=== PATIENT | female | born 1995 | race African-American/Black ===

== ENCOUNTER 2016-06-21 03:05 | Outpatient (CLI) | payer MEDICAID ==
[2016-06-21 03:44] LABS: APPEARANCE,URINE SLIGHTLY-CLOUDY; BILIRUBIN,URINE NEGATIVE (NEGATIVE); GLUCOSE, URINE NEGATIVE (NEGATIVE); KETONES,URINE NEGATIVE (NEGATIVE); LEUKOCYTE ESTERASE,URINE NEGATIVE (NEGATIVE); NITRITE,URINE NEGATIVE (NEGATIVE); PROTEIN,URINE NEGATIVE (NEGATIVE); URINE SPECIFIC GRAVITY 1.006; UROBILINOGEN,URINE NEGATIVE mg/dL (<2.0)
[2016-06-21 04:00] LABS: URINE BARBITURATES SCREEN NEGATIVE; URINE METHADONE SCREEN NEGATIVE; URINE OPIATES LOW NEGATIVE; URINE PHENCYCLIDINE SCREEN NEGATIVE
[2016-06-21 04:14] LABS: AMNISURE (ROM) NEGATIVE (NEGATIVE)
--- NOTE | 2016-06-21 04:44 | Non Stress Test Report ---
Non Stress Test Datetime Report Generated by CPN: 06/21/2016 04:43 DEMOGRAPHIC EGA NST: 40.3 INDICATION Indication for Study: Ordered by Provider; Other Indication for Study (NST) Other: LC URINE RESULTS Urine Protein, NST: Negative Urine Ketones - NST: Negative Urine Glucose - NST: Negative Urine Blood - NST: Negative MONITORING Monitor Explained: Monitor Explained; Test Explained; Patient Verbalized Understanding Time on Monitor: 06/21/2016 03:19 Time off Monitor: 06/21/2016 04:23 NST Duration: 64 NST INTERVENTIONS Physician Notified NST: Dr Neilsen BABY A Movement : Present Contraction Frequency : 3-15 FHR Baseline : 145 Accelerations : 15X15 Decelerations : None Variability : Moderate 6-25bpm NST Review: Meets Criteria for Reactive NST NST Review and Verified By : TRENT Min NST Results: Reactive NST REPORT Report Trigger: Send Report
[2016-06-21] MEDS ORDERED: RINGERS SOLUTION,LACTATED 1,000 ML IV PRN (12:24)
[2016-06-21] MEDS ORDERED: OXYTOCIN/NORMAL SALINE 1,000 ML IV PRN (12:24)
== END 2016-06-21 04:29 | disposition home or self-care (01) ==
LOC: LC 03:05
PROVIDERS: ATTEND Specialist
PROC: 4A1HXCZ Monitoring of Products of Conception, Cardiac Rate, External Approach (ICD-10-PCS; principal; 2016-06-21)
DX: O47.1 False labor at or after 37 completed weeks of gestation (principal); Z3A.40 40 weeks gestation of pregnancy
CPT/HCPCS: 59025; 84112; 81005; 80307; Q0114

== ENCOUNTER 2016-06-21 11:26 | Inpatient (IN) | payer MEDICAID ==
--- NOTE | 2016-06-21 12:00 | L&D Flow Sheet ---
LD Flowsheet Datetime Report Generated by CPN: 06/21/2016 12:00 Datetime: 06/21/2016 11:48 NBP Sys/[place]ugenia/Mean (mmHg): 120 (QS system process) : 62 (QS system process) : 84 (QS system process) Pulse: 111 (QS system process) LaborFlag: Antepartum (QS system process) Datetime: 06/21/2016 04:29 Teaching Comments: Term instructions given. Pt agrees to POC for d/c and IOL. Pt instructed to return to unit for strong/regular/painful ctx, suspected ROM, decreased movement, heavy vaginal bleeding. Pt denies questions at this time (Bina Grubbs RN) Additional Nursing Comments: Pt stable, ambulatory, discharged from unit (Bina Grubbs RN) Datetime: 06/21/2016 04:22 NBP Sys/[place]/Mean (mmHg): 93 (QS system process) : 55 (QS system process) : 68 (QS system process) Pulse: 96 (Annotations: HR palpated by RN ) (Bina Grubbs RN) Pulse: 114 (QS system process) Respirations: 15 (Bina Grubbs RN) Monitor Mode: External (Bina Grubbs RN) Frequency (min): 3-15 (Bina Grubbs RN) Quality: Mild (Bina Grubbs RN) Duration (sec): 60-70 (Bina Grubbs RN) Resting Tone (Palpate): Relaxed (Bina Grubbs RN) Monitor Mode: External US (Bina Grubbs RN) FHR Baseline Rate : 145 (Bina Grubbs RN) Variability: Moderate 6-25 bpm (Bina Grubbs RN) Accelerations: 15X15 (Bina Grubbs RN) Decelerations: None (Bina Grubbs RN) Patient Care Comments: monitors removed for d/c, pt wishes for IOL on monday 06/26 (Bina Grubbs RN) LaborFlag: Antepartum (QS system process) Datetime: 06/21/2016 04:15 Fern: Negative (Bina Grubbs RN) Communication: Provider Orders Received; Call/Page Placed to Provider; Report Given to @ Dr Hodge (Bina Grubbs RN) Communication Comments: Call placed to Dr Hodge, report re: pt presence, hx, NST, SVE and lab results. Orders to d/c pt to home, schedule postdates IOL if pt desires, will complete paperwork at pt follow up appt on saturday (Bina Grubbs RN) Datetime: 06/21/2016 04:00 Monitor Mode: External; Palpation (Bina Grubbs RN) Frequency (min): 3-6 (Bina Grubbs RN) Quality: Mild (Bina Grubbs RN) Duration (sec): 50-70 (Bina Grubbs RN) Resting Tone (Palpate): Relaxed (Bina Grubbs RN) Monitor Mode: External US (Bina Grubbs RN) FHR Baseline Rate : 145 (Bina Grubbs RN) Variability: Moderate 6-25 bpm (Bina Grubbs, RN) Accelerations: 15X15 (Bina Humera, RN) Decelerations: None (Bina Humera, RN) Datetime: 06/21/2016 03:43 I/O Interventions: Popsicle (Bina Humera, RN) Datetime: 06/21/2016 03:30 Frequency (min): q7 per pt (Bina Grubbs RN) Quality: Mild (Bina Grubbs RN) Pain Scale: 2 (Bina Grubbs RN) Pain Presence: Intermittent (Bina Grubbs RN) Pain Type: Contraction (Bina Grubbs RN) Pain Location: Abdomen; Back (Bina Grubbs RN) Pain Relief Measures: Comfort Measures (Bina Grubbs RN) Pain Coping: Talking Through Contractions (Bina Grubbs RN) Vaginal Bleeding: Scant (Annotations: blood tinge on amnisure, pt reports no bloody show ) (Bina Grubbs RN) Dilatation (cm): 1-2 cm (Bina Grubbs RN) Effacement: 60-70_ effaced (Bina Grubbs RN) Station: minus 2 (Bina Grubbs RN) Consistency: Soft (Bina Grubbs RN) Position: Anterior (Bina Grubbs RN) Total Melendez's Score: 8 (QS system process) : 5-8 = Small percentage of induction failure (QS system process) Level of Consciousness: Fully Conscious (Bina Grubbs RN) DTR's/Clonus: DTRs 2+; No Clonus (Bina Grubbs RN) Headache: Denies (Bina Grubbs RN) Breath Sounds, Left: Clear and Equal (Bina Grubbs RN) Breath Sounds, Right: Clear and Equal (Bina Grubbs RN) Nausea/Vomiting: Denies (Bina Grubbs RN) RUQ Epigastric Pain: Denies (Bina Grubbs RN) Patient Position/Activity: Right Tilt (Bina Grubbs RN) Comfort Measures: Family Support (Bina Grubbs RN) Instructional Method: Verbal; Patient Instructed; Family/Support Person Instructed; Verbalized Understanding (Bina Grubbs RN) Plan of Care: Plan of Care Discussed (Bina Grubbs RN) Unit Routine: [place] to Room; Call [place]ales; Bed; Unit Personnel (Bina Grubbs RN) LaborFlag: Antepartum (QS system process) Datetime: 06/21/2016 03:29 Membrane Comments: deepti collected and sent (Bina Grubbs RN) Datetime: 06/21/2016 03:24 Dilatation (cm): 1.5 (Bina Grubbs RN) Effacement (%): 60 (Bina Grubbs RN) Station: -2 (Bina Grubbs RN) Exam by: Clare Grubbs RN (Bina Grubbs RN) Vaginal Bleeding: Scant (Bina Grubbs RN) Cervix, Consistency: Soft (Bina Grubbs RN) Cervix, Position: Anterior (Bina Grubbs RN) Vaginal Exam Comments: Bag of water palpable (Bina Grubbs RN) Datetime: 06/21/2016 03:21 NBP Sys/[place]ugenia/Mean (mmHg): 107 (QS system process) : 66 (QS system process) : 81 (QS system process) Pulse: 109 (QS system process) Respirations: 15 (Bina Grubbs RN) Temperature (F): 98.2 (Bina Grubbs RN) Temperature (C): 36.8 (QS system process) Temperature Route: Oral (Bina Grubbs RN) LaborFlag: Antepartum (QS system process) Datetime: 06/21/2016 03:19 Stage of : Antepartum (Bina Grubbs RN)
[2016-06-21 12:16] LABS: AMNISURE (ROM) POSITIVE (NEGATIVE)
[2016-06-21 12:28] LABS: APPEARANCE,URINE SLIGHTLY-CLOUDY; BILIRUBIN,URINE NEGATIVE (NEGATIVE); GLUCOSE, URINE NEGATIVE (NEGATIVE); KETONES,URINE 20 mg/dL (NEGATIVE); LEUKOCYTE ESTERASE,URINE SMALL (NEGATIVE); NITRITE,URINE NEGATIVE (NEGATIVE); PROTEIN,URINE NEGATIVE (NEGATIVE); UROBILINOGEN,URINE NEGATIVE mg/dL (<2.0)
[2016-06-21] MEDS ORDERED: RINGERS SOLUTION,LACTATED 300 ML IV ONE (12:44)
[2016-06-21] MEDS ORDERED: RINGERS SOLUTION,LACTATED 1,000 ML IV PRN (12:44)
[2016-06-21 13:02] LABS: URINE BARBITURATES SCREEN NEGATIVE; URINE METHADONE SCREEN NEGATIVE; URINE OPIATES LOW NEGATIVE; URINE PHENCYCLIDINE SCREEN NEGATIVE
[2016-06-21] MEDS ORDERED: OXYTOCIN/NORMAL SALINE 20 UNIT/1,000 ML RTUINJ ONE (13:29)
[2016-06-21] MEDS: OXYTOCIN/NORMAL SALINE 1,000 ML IV PRN ×2 (13:35→22:49)
--- NOTE | 2016-06-21 14:00 | L&D Flow Sheet ---
LD Flowsheet Datetime Report Generated by CPN: 06/21/2016 14:00 Datetime: 06/21/2016 13:49 NBP Sys/[place]ugenia/Mean (mmHg): 116 (QS system process) : 68 (QS system process) : 84 (QS system process) Pulse: 111 (QS system process) LaborFlag: Antepartum (QS system process) Datetime: 06/21/2016 13:40 Pitocin (milliunit): Pitocin Started (milliunits) @ 2 (Cheri Antonio, RN) Datetime: 06/21/2016 13:19 NBP Sys/[place]/Mean (mmHg): 104 (QS system process) : 61 (QS system process) : 78 (QS system process) Pulse: 111 (QS system process) LaborFlag: Antepartum (QS system process) Datetime: 06/21/2016 13:00 Monitor Mode: External (Cheri Antonio, RN) Frequency (min): 5-6.5 (Cheri Antonio, RN) Quality: Mild/Moderate (Cheri Devriestt, RN) Duration (sec): 90-120 (Chrei Devriestt, RN) Resting Tone (Palpate): Relaxed (Cheri Antonio, RN) Monitor Mode: External US (Cheri Antonio, RN) FHR Baseline Rate : 140 (Cheri Devriestt, RN) Variability: Moderate 6-25 bpm (Cheri Jenellelatt, RN) Accelerations: 15X15 (Cheri Devriestt, RN) Decelerations: None (Cheri Marlatt, RN) Datetime: 06/21/2016 12:49 NBP Sys/[place]/Mean (mmHg): 110 (QS system process) : 59 (QS system process) : 77 (QS system process) Pulse: 103 (QS system process) LaborFlag: Antepartum (QS system process) Datetime: 06/21/2016 12:40 Monitor Interventions for FHR: Ultrasound Adjusted (Cheri Marlatt, RN) Datetime: 06/21/2016 12:38 IV/Blood Work: IV Started; IV Bolus Started (Cheri Antonio RN) Patient Care Comments: 18G left wrist (Cheri Antonio RN) Datetime: 06/21/2016 12:30 Frequency (min): 5-6 (Cheri Antonio, RN) Duration (sec): 80-90 (Cheri Antonio RN) Resting Tone (Palpate): Relaxed (Cheri Antonio RN) Monitor Mode: External US (Cheri Antonio RN) FHR Baseline Rate : 135 (Cheri Antonio RN) Variability: Moderate 6-25 bpm (Cheri Antonio, RN) Accelerations: 15X15 (Cheri Antonio, RN) Decelerations: Early (Cheri Antonio, RN) Datetime: 06/21/2016 12:20 Membrane Status: Ruptured (Cheri Antonio RN) Membranes Ruptured Date/Time: 06/21/2016 10:30 (Cheri Antonio RN) Membranes Rupture Method: Spontaneous (Cheri Antonio RN) Amniotic Fluid Color: Light Meconium (Cheri Antonio RN) Amniotic Fluid Amount: Scant (Cheri Antonio RN) Amniotic Fluid Odor: Normal (Cheri Antonio RN) Vaginal Bleeding: None (Cheri Antonio RN) Provider Reviewed Strip: Yes (Cheri Antonio RN) Communication: Provider Orders Received; Call/Page Placed to Provider (Cheri Antonio RN) Provider Notified (Name): Kaley James CNM (Cheri Antonio RN) Notification Reason: Status Update; Status; Labor Status; Membrane Status; Uterine Activity; Pain; Lab/Diagnostic Study (Cheri Antonio RN) Communication Comments: Notified provider of FHTs, CTXs, SVE, and positive amnisure. Received order to admit patient and once admitted begin Pitocin 20units/1000ml NS at 2milliunits/min and increase by 2 milliunits/min every 30 minutes until adequate labor pattern is acheived. Patient may have epidural when ready. (Cheri Antonio RN) Datetime: 06/21/2016 12:19 NBP Sys/[place]/Mean (mmHg): 114 (QS system process) : 70 (QS system process) : 86 (QS system process) Pulse: 118 (QS system process) LaborFlag: Antepartum (QS system process) Datetime: 06/21/2016 12:17 ROM Test Kit: Positive (Cheri Antonio, RN) Datetime: 06/21/2016 12:00 Monitor Mode: External (Cheri Antonio RN) Frequency (min): 5.5 (Cheri Antonio RN) Quality: Mild/Moderate (Cheri Antonio RN) Duration (sec): 90-100 (Cheri Antonio RN) Resting Tone (Palpate): Relaxed (Cheri Antonio RN) Monitor Mode: External US (Cheri Antonio RN) FHR Baseline Rate : 140 (Cheri Antonio RN) Variability: Moderate 6-25 bpm (Cheri Antonio RN) Decelerations: Early (Cheri Antonio RN)
[2016-06-21 14:35] LABS: ABSOLUTE LYMPHOCYTES (AUTO) 1.5 10^3/uL (0.5-4.7); ABSOLUTE MONOCYTES (AUTO) 0.8 10^3/uL (0.1-1.4); ABSOLUTE NEUT (AUTO) 14.6 10^3/uL (1.7-8.2); BASOPHILS % (AUTO) 0.1 % (0-2); HEMATOCRIT 31.6 % (36.0-47.0); HEMOGLOBIN 10.3 g/dL (12.0-15.5); HGB HCT DIFFERENCE -0.7; LYMPHOCYTES % (AUTO) 8.7 % (13-45); MEAN CORPUSCULAR HEMOGLOBIN 27.9 pg (27.0-33.4); MEAN CORPUSCULAR HGB CONC 32.6 g/dL (32.0-36.0); MEAN CORPUSCULAR VOLUME 85 fl (80-97); RED CELL DISTRIBUTION WIDTH 15.1 % (11.5-14.0); SEGMENTED NEUTROPHILS % (AUTO) 86.2 % (42-78); WHITE BLOOD COUNT 16.9 10^3/uL (4.0-10.5)
[2016-06-21] MEDS ORDERED: EPHEDRINE SULFATE INJ 50 MG/1 ML AMPULE ONE (14:58)
[2016-06-21] MEDS ORDERED: BUPIVACAINE HCL 0.25 % INJ/PF (2.5 MG/1 ML) 30 ML VIAL ONE (14:58)
[2016-06-21] MEDS ORDERED: FENTANYL/BUPIVACAINE/NS/PF 200 MCG/100 ML RTUINJ EPI ONE (14:58)
--- NOTE | 2016-06-21 16:00 | L&D Flow Sheet ---
LD Flowsheet Datetime Report Generated by CPN: 06/21/2016 16:00 Datetime: 06/21/2016 15:55 NBP Sys/[place]ugenia/Mean (mmHg): 103 (QS system process) : 55 (QS system process) : 72 (QS system process) Pulse: 115 (QS system process) LaborFlag: Antepartum (QS system process) Datetime: 06/21/2016 15:44 NBP Sys/[place]/Mean (mmHg): 101 (QS system process) : 56 (QS system process) : 73 (QS system process) Pulse: 123 (QS system process) LaborFlag: Antepartum (QS system process) Datetime: 06/21/2016 15:42 NBP Sys/[place]/Mean (mmHg): 90 (QS system process) : 53 (QS system process) : 64 (QS system process) Pulse: 113 (QS system process) Monitor Interventions for UA: [place] Adjusted (Cheri Antonio RN) LaborFlag: Antepartum (QS system process) Datetime: 06/21/2016 15:40 NBP Sys/[place]/Mean (mmHg): 94 (QS system process) : 56 (QS system process) : 68 (QS system process) Pulse: 109 (QS system process) Monitor Interventions for UA: [place] Adjusted (Cheri Antonio RN) Monitor Interventions for FHR: Ultrasound Adjusted (Cheri Antonio RN) LaborFlag: Antepartum (QS system process) Datetime: 06/21/2016 15:38 NBP Sys/[place]/Mean (mmHg): 102 (QS system process) : 59 (QS system process) : 72 (QS system process) Pulse: 116 (QS system process) Anesthesia Comments: 5mg Ephedrine given IV (Cheri Antonio RN) LaborFlag: Antepartum (QS system process) Datetime: 06/21/2016 15:36 NBP Sys/[place]/Mean (mmHg): 99 (QS system process) : 55 (QS system process) : 70 (QS system process) Pulse: 105 (QS system process) LaborFlag: Antepartum (QS system process) Datetime: 06/21/2016 15:34 NBP Sys/[place]/Mean (mmHg): 97 (QS system process) : 58 (QS system process) : 71 (QS system process) Pulse: 107 (QS system process) LaborFlag: Antepartum (QS system process) Datetime: 06/21/2016 15:33 Pitocin (milliunit): Pitocin Increased to (milliunits) @ 4 (Cheri Jenellesusana, ) Datetime: 06/21/2016 15:32 NBP Sys/[place]/Mean (mmHg): 102 (QS system process) : 63 (QS system process) : 78 (QS system process) Pulse: 113 (QS system process) LaborFlag: Antepartum (QS system process) Datetime: 06/21/2016 15:30 NBP Sys/[place]/Mean (mmHg): 106 (QS system process) : 77 (QS system process) : 87 (QS system process) Pulse: 120 (QS system process) Patient Position/Activity: Right Lateral; Low Fowlers (Cheri Antonio, RN) LaborFlag: Antepartum (QS system process) Datetime: 06/21/2016 15:29 I/O Interventions: Valenzuela Cath Inserted (Cheri Antonio, RN) Datetime: 06/21/2016 15:28 NBP Sys/[place]/Mean (mmHg): 110 (QS system process) : 74 (QS system process) : 87 (QS system process) Pulse: 104 (QS system process) LaborFlag: Antepartum (QS system process) Datetime: 06/21/2016 15:26 NBP Sys/[place]/Mean (mmHg): 110 (QS system process) : 73 (QS system process) : 87 (QS system process) Pulse: 115 (QS system process) Patient Position/Activity: Supine (Cheri Antonio RN) Epidural Procedure Other: Pump Started (Cheri Antonio RN) LaborFlag: Antepartum (QS system process) Datetime: 06/21/2016 15:24 NBP Sys/Eug[place]/Mean (mmHg): 118 (QS system process) : 85 (QS system process) : 96 (QS system process) Pulse: 112 (QS system process) LaborFlag: Antepartum (QS system process) Datetime: 06/21/2016 15:22 NBP Sys/[place]/Mean (mmHg): 119 (QS system process) : 81 (QS system process) : 96 (QS system process) Pulse: 113 (QS system process) Epidural Procedure: Cath Placed (Cheri Antonio RN) LaborFlag: Antepartum (QS system process) Datetime: 06/21/2016 15:20 NBP Sys/Eugenia/Mean (mmHg): 131 (QS system process) : 85 (QS system process) : 103 (QS system process) Pulse: 108 (QS system process) Epidural Procedure: Test Dose (Cheri Antonio RN) LaborFlag: Antepartum (QS system process) Datetime: 06/21/2016 15:19 Pulse: 108 (QS system process) SpO2 (%): 100 (QS system process) LaborFlag: Antepartum (QS system process) Datetime: 06/21/2016 15:14 Pulse: 113 (QS system process) SpO2 (%): 100 (QS system process) LaborFlag: Antepartum (QS system process) Datetime: 06/21/2016 15:10 Procedure Verify: Correct Patient Identity; Accurate Procedure Consent Form; Agreement on Procedure to be Done (Cheri Antonio RN) Anesthesia Plans: Epidural (Cheri Antonio RN) Epidural Positioning: Sitting (Cheri Antonio RN) Anesthesia Comments: Dr. Judd at bedside (Cheri Antonio RN) Datetime: 06/21/2016 15:09 Pulse: 117 (QS system process) SpO2 (%): 100 (QS system process) LaborFlag: Antepartum (QS system process) Datetime: 06/21/2016 15:04 Pulse: 116 (QS system process) SpO2 (%): 100 (QS system process) LaborFlag: Antepartum (QS system process) Datetime: 06/21/2016 15:03 Epidural Positioning: Sitting (Cheri Marlatt, RN) Datetime: 06/21/2016 15:01 Patient Care Comments: getting patient in position for epidural (Cheri Antonio, MARLENE) Datetime: 06/21/2016 14:58 Pain Assessment Comments: Dr. Judd notified of patient's request for epidural. Received order to sit patient up for epidrual placement and he would be there in 10 minutes (Cheri Antonio RN) Comfort Measures: Anesthesia Notified (Cheri Antonio RN) LaborFlag: Antepartum (QS system process) Datetime: 06/21/2016 14:49 NBP Sys/Eugenia/Mean (mmHg): 115 (QS system process) : 65 (QS system process) : 82 (QS system process) Pulse: 111 (QS system process) LaborFlag: Antepartum (QS system process) Datetime: 06/21/2016 14:20 Dilatation (cm): 4.0 (Cheri Antonio RN) Effacement (%): 80 (Cheri Antonio RN) Station: -1 (Cheri Antonio RN) Exam by: Vincent Martin (Cheri Antonio RN) Cervix, Position: Anterior (Cheri Antonio RN) Datetime: 06/21/2016 14:19 NBP Sys/[place]ugenia/Mean (mmHg): 109 (QS system process) : 75 (QS system process) : 88 (QS system process) Pulse: 127 (QS system process) Pain Presence: Intermittent (Cheri Antonio RN) Pain Type: Cramping; Contraction; Pressure (Cheri Antonio RN) Pain Location: Abdomen (Cheri Antonio RN) Pain Coping: Requesting Pain Medication or Epidural; Crying (Cheri Antonio RN) Pain Assessment Comments: patient states shes feeling pressure (Cheri Antonio RN) LaborFlag: Antepartum (QS system process)
--- NOTE | 2016-06-21 18:00 | L&D Flow Sheet ---
LD Flowsheet Datetime Report Generated by CPN: 06/21/2016 18:00 Datetime: 06/21/2016 17:56 NBP Sys/Eugenia/Mean (mmHg): 99 (QS system process) : 54 (QS system process) : 70 (QS system process) Pulse: 113 (QS system process) LaborFlag: Antepartum (QS system process) Datetime: 06/21/2016 17:55 Monitor Interventions for UA: [place] Adjusted (Cheri Marlatt, RN) Datetime: 06/21/2016 17:51 Monitor Interventions for UA: [place] Adjusted (Cheri Marlatt, RN) Datetime: 06/21/2016 17:42 Temperature (F): 98.2 (Cheri Antonio, RN) Temperature (C): 36.8 (QS system process) LaborFlag: Antepartum (QS system process) Datetime: 06/21/2016 17:36 NBP Sys/Eugenia/Mean (mmHg): 105 (QS system process) : 57 (QS system process) : 75 (QS system process) Pulse: 120 (QS system process) LaborFlag: Antepartum (QS system process) Datetime: 06/21/2016 17:30 Monitor Mode: External (Cheri Antonio RN) Frequency (min): 2.5-3.5 (Cheri Antonio RN) Quality: Moderate (Cheri Antonio RN) Duration (sec): 50-90 (Cheri Antonio RN) Resting Tone (Palpate): Relaxed (Cheri Antonio RN) Monitor Mode: External US (Cheri Antonio RN) FHR Baseline Rate : 145 (Cheri Antonio RN) Variability: Moderate 6-25 bpm (Cheri Antonio RN) Decelerations: None (Cheri Antonio, RN) Pitocin (milliunit): Pitocin Remains (milliunits) @ 8 (Cheri Antonio RN) Datetime: 06/21/2016 17:25 NBP Sys/[place]ugenia/Mean (mmHg): 101 (QS system process) : 55 (QS system process) : 67 (QS system process) Pulse: 120 (QS system process) LaborFlag: Antepartum (QS system process) Datetime: 06/21/2016 17:19 IV/Blood Work: IV Bolus Started (Cheri Antonio RN) Datetime: 06/21/2016 17:15 NBP Sys/[place]enia/Mean (mmHg): 93 (QS system process) : 55 (QS system process) : 68 (QS system process) Pulse: 108 (QS system process) Monitor Mode: External (Cheri Antonio RN) Frequency (min): 2-3 (Cheri Antonio RN) Quality: Moderate (Cheri Antonio RN) Duration (sec): 60-70 (Cheri Antonio RN) Resting Tone (Palpate): Relaxed (Cheri Antonio RN) Monitor Mode: External US (Cheri Antonio RN) FHR Baseline Rate : 145 (Cheri Antonio RN) Variability: Moderate 6-25 bpm (Cheri Antonio RN) Decelerations: Early (Cheri Antonio RN) Pitocin (milliunit): Pitocin Remains (milliunits) @ 8 (Cheri Antonio RN) LaborFlag: Antepartum (QS system process) Datetime: 06/21/2016 17:05 NBP Sys/[place]/Mean (mmHg): 94 (QS system process) : 53 (QS system process) : 69 (QS system process) Pulse: 108 (QS system process) LaborFlag: Antepartum (QS system process) Datetime: 06/21/2016 17:00 Monitor Mode: External; Palpation (Cheri Antonio RN) Frequency (min): 3-4 (Cheri Antonio RN) Quality: Moderate (Cheri Antonio RN) Duration (sec): 60-100 (Cheri Antonio RN) Resting Tone (Palpate): Relaxed (Cheri Antonio RN) Monitor Mode: External US (Cheri Antonio RN) FHR Baseline Rate : 140 (Cheri Antonio RN) Variability: Moderate 6-25 bpm (Cheri Antonio RN) Accelerations: 15X15 (Cheri Antonio RN) Pitocin (milliunit): Pitocin Increased to (milliunits) @ 8 (Cheri Antonio RN) Datetime: 06/21/2016 16:59 Dilatation (cm): 6.0 (Cheri Antonio RN) Effacement (%): 80 (Cheri Antonio RN) Station: -1 (Cheri Antonio RN) Exam by: Vincent Antonio RN (Cheri Antonio, MARLENE) Datetime: 06/21/2016 16:55 NBP Sys/[place]/Mean (mmHg): 99 (QS system process) : 56 (QS system process) : 72 (QS system process) Pulse: 116 (QS system process) LaborFlag: Antepartum (QS system process) Datetime: 06/21/2016 16:46 NBP Sys/[place]/Mean (mmHg): 100 (QS system process) : 57 (QS system process) : 73 (QS system process) Pulse: 114 (QS system process) LaborFlag: Antepartum (QS system process) Datetime: 06/21/2016 16:45 Monitor Mode: External (Cheri Antonio RN) Frequency (min): 2-5 (Cheri Antonio RN) Quality: Moderate (Cheri Antonio RN) Duration (sec): 70-80 (Cheri Antonio RN) Resting Tone (Palpate): Relaxed (Cheri Atnonio, MARLENE) Monitor Mode: External US (Cheri Antonio, MARLENE) FHR Baseline Rate : 140 (Cheri Antonio RN) Variability: Moderate 6-25 bpm (Cheri Antonio RN) Accelerations: 15X15 (Cheri Antonio, RN) Decelerations: Early (Cheri Antonio RN) Pitocin (milliunit): Pitocin Remains (milliunits) @ 6 (Cheri Antonio RN) Datetime: 06/21/2016 16:35 NBP Sys/[place]/Mean (mmHg): 98 (QS system process) : 56 (QS system process) : 71 (QS system process) Pulse: 110 (QS system process) LaborFlag: Antepartum (QS system process) Datetime: 06/21/2016 16:30 Monitor Mode: External (Cheri Antonio RN) Frequency (min): 4.5 (Cheri Antonio RN) Quality: Moderate (Cheri Antonio RN) Duration (sec): 70-80 (Cheri Antonio RN) Resting Tone (Palpate): Relaxed (Cheri Antonio RN) Monitor Mode: External US (Cheri Antonio RN) FHR Baseline Rate : 140 (Cheri Antonio RN) Variability: Moderate 6-25 bpm (Cheri Antonio RN) Accelerations: 15X15 (Cheri Antonio RN) Decelerations: Early (Cheri Antonio RN) Pitocin (milliunit): Pitocin Remains (milliunits) @ 6 (Cheri Antonio, RN) Datetime: 06/21/2016 16:25 NBP Sys/[place]/Mean (mmHg): 108 (QS system process) : 55 (QS system process) : 74 (QS system process) Pulse: 112 (QS system process) LaborFlag: Antepartum (QS system process) Datetime: 06/21/2016 16:15 Monitor Mode: External; Palpation (Cheri Antonio RN) Frequency (min): 3.5-4.5 (Cheri Antonio RN) Quality: Mild/Moderate (Cheri Antonio RN) Duration (sec): 70-100 (Cehri Antonio RN) Resting Tone (Palpate): Relaxed (Cheri Antonio RN) Monitor Mode: External US (Cheri Antonio RN) FHR Baseline Rate : 135 (Cheri Antonio RN) Variability: Moderate 6-25 bpm (Cheri Antonio RN) Accelerations: 15X15 (Cheri Antonio RN) Decelerations: Early (Cheri Antonio RN) Pitocin (milliunit): Pitocin Increased to (milliunits) @ 6 (Cheri Antonio RN) Patient Position/Activity: Left Lateral; Low Fowlers (Cheri Antonio RN) Datetime: 06/21/2016 16:05 NBP Sys/[place]/Mean (mmHg): 99 (QS system process) : 57 (QS system process) : 73 (QS system process) Pulse: 117 (QS system process) LaborFlag: Antepartum (QS system process) Datetime: 06/21/2016 16:00 Monitor Mode: External (Koffi Reed RN) Frequency (min): 2.5-3 (Koffi Reed RN) Quality: Mild/Moderate (Koffi Reed RN) Duration (sec): 60-90 (Koffi Reed RN) Resting Tone (Palpate): Relaxed (Koffi Reed RN) Monitor Mode: External US (Koffi Reed RN) FHR Baseline Rate : 135 (Koffi Reed RN) Variability: Moderate 6-25 bpm (Koffi Reed RN) Accelerations: 10X10 (Koffi Reed RN) Decelerations: Early (Koffi Reed RN) Pitocin (milliunit): Pitocin Remains (milliunits) @ 4 (Cheri Antonio RN)
--- NOTE | 2016-06-21 18:41 | L&D Progress Notes ---
PROGRESS NOTES Datetime Report Generated by CPN: 06/21/2016 18:41 PROGRESS NOTE Impression: Normal Progression of Labor Procedures: Intrauterine Pressure Catheter; Scalp Electrode; Sterile Vag Exam Plan: Continue Present Management Informed Consent Obtained: Vaginal Delivery Vital Signs : Reviewed Comment: SVE as above FSE, IUPC placed without difficulty Will cotninue to monitor VAGINAL EXAM Dilatation: 7 Dilatation: 3 Effacement: 90 Effacement: 80 Station: 0 Station: -1 Contractions: 2-4 Contractions: irregular MEMBRANES Membranes: Ruptured Membranes: Ruptured Amniotic Fluid Color: Meconium, Light Amniotic Fluid Color: Meconium, Light FETUS A FHR - Baseline: 140 Monitoring: Internal Scalp Electrode Variability: Moderate 6-25bpm Decelerations: Early; Variable FHR Category: Category II Estimated Weight (gm): 3400 Presentation: Vertex SIGNATURE SIGNATURE: [id number] SIGNATURE: [id number] SIGNATURE: [id number] Assignment: Gabriela Bryan MD Signature: with User ID: [email or web address] : with User ID: [email or web address]
[2016-06-21] MEDS ORDERED: LIDOCAINE 1% INJ-PF (10 MG/ML) 30 ML SDV ONE (19:30)
[2016-06-21] MEDS ORDERED: MISOPROSTOL 0.2 MG TABLET ONE (19:30)
--- NOTE | 2016-06-21 20:00 | L&D Flow Sheet ---
LD Flowsheet Datetime Report Generated by CPN: 06/21/2016 20:00 Datetime: 06/21/2016 19:56 NBP Sys/Eugenia/Mean (mmHg): 116 (QS system process) : 67 (QS system process) : 86 (QS system process) Pulse: 133 (QS system process) LaborFlag: Antepartum (QS system process) Datetime: 06/21/2016 19:45 Monitor Mode: Internal (Cheri Antonio, RN) Frequency (min): 1.5-3 (Cheri Marlatt, RN) Quality: Moderate to Strong (Cheri Marlatt, RN) Duration (sec): 70-80 (Cheri Marlatt, RN) Resting Tone (Palpate): Relaxed (Cheri Marlatt, RN) Monitor Mode: Internal Scalp Electrode (Cheri Marlatt, RN) FHR Baseline Rate : 140 (Chrei Marlatt, RN) Variability: Moderate 6-25 bpm (Cheri Marlatt, RN) Decelerations: Early (Cheri Marlatt, RN) Pitocin (milliunit): Pitocin Remains (milliunits) @ 12 (Cheri Marlatt, RN) Datetime: 06/21/2016 19:41 NBP Sys/Eugenia/Mean (mmHg): 109 (QS system process) : 57 (QS system process) : 77 (QS system process) Pulse: 136 (QS system process) LaborFlag: Antepartum (QS system process) Datetime: 06/21/2016 19:30 Monitor Mode: Internal (Cheri Almanzarlatt, RN) Frequency (min): 2.5 (Cheri Jenellelatt, RN) Quality: Moderate to Strong (Cheri Jenellelatt, RN) Duration (sec): 60-80 (Cheri Jenellelatt, RN) Resting Tone (Palpate): Relaxed (Cheri Jenellelatt, RN) Monitor Mode: Internal Scalp Electrode (Cheri Devriestt, RN) FHR Baseline Rate : 130 (Cheri Jenellelatt, RN) Variability: Moderate 6-25 bpm (Cheri Marlatt, RN) Accelerations: 15X15 (Cheri Marlatt, RN) Decelerations: Early (Cheri Jenellelatt, RN) Datetime: 06/21/2016 19:28 Patient Position/Activity: Right Lateral; Peanut Ball (Cheri Antonio, RN) Datetime: 06/21/2016 19:27 Dilatation (cm): 9.5 (Cheri Jenellelatt, RN) Effacement (%): 100 (Cheri Antonio, RN) Station: 1 (Cheri Antonio RN) Exam by: Vincent Antonio RN (Cheriomer Antonio, RN) Datetime: 06/21/2016 19:26 NBP Sys/Eugenia/Mean (mmHg): 111 (QS system process) : 65 (QS system process) : 80 (QS system process) Pulse: 126 (QS system process) LaborFlag: Antepartum (QS system process) Datetime: 06/21/2016 19:19 IV/Blood Work: IV Infusing per Order (Cheri Antonio, RN) Patient Care Comments: LR at 125ml/hr (Cheri Antonio, RN) Datetime: 06/21/2016 19:15 Monitor Mode: Internal (Cheri Marlatt, RN) Frequency (min): 2-2.5 (Cheri Marlatt, RN) Quality: Moderate to Strong (Cheri Marlatt, RN) Duration (sec): 60-70 (Cheri Marlatt, RN) Resting Tone (Palpate): Relaxed (Cheri Marlatt, RN) Monitor Mode: Internal Scalp Electrode (Cheri Marlatt, RN) FHR Baseline Rate : 125 (Cheri Marlatt, RN) Variability: Moderate 6-25 bpm (Cheri Marlatt, RN) Accelerations: 15X15 (Cheri Marlatt, RN) Decelerations: Early (Cheri Marlatt, RN) Pitocin (milliunit): Pitocin Remains (milliunits) @ 12 (Cheri Marlatt, RN) Datetime: 06/21/2016 19:12 NBP Sys/Eugenia/Mean (mmHg): 113 (QS system process) : 67 (QS system process) : 82 (QS system process) Pulse: 121 (QS system process) LaborFlag: Antepartum (QS system process) Datetime: 06/21/2016 19:00 Monitor Mode: Internal (Cheri Marlatt, RN) Frequency (min): 1.5-3 (Cheri Marlatt, RN) Quality: Moderate (Cheri Marlatt, RN) Duration (sec): 60-80 (Cheri Marlatt, RN) Resting Tone (Palpate): Relaxed (Cheri Marlatt, RN) Resting Tone IUP (mmHg): 0 (Cheri Marlatt, RN) Intensity IUP (mmHg): 66 (Cheri Marlatt, RN) Contraction Comments: MVU 330 (Cheri Marlatt, RN) Monitor Mode: Internal Scalp Electrode (Cheri Jenellelatt, RN) FHR Baseline Rate : 135 (Cheri Marlatt, RN) Variability: Moderate 6-25 bpm (Cheri Marlatt, RN) Decelerations: Early (Cheri Marlatt, RN) Pitocin (milliunit): Pitocin Remains (milliunits) @ 12 (Cheri Jenellelatt, RN) Datetime: 06/21/2016 18:56 NBP Sys/[place]ugenia/Mean (mmHg): 113 (QS system process) : 65 (QS system process) : 82 (QS system process) Pulse: 123 (QS system process) LaborFlag: Antepartum (QS system process) Datetime: 06/21/2016 18:54 IV/Blood Work: New IV Bag Hung (Cheri Marlatt, RN) Datetime: 06/21/2016 18:52 Patient Position/Activity: Right Lateral; Peanut Ball; Low Fowlers (Cheri Marlatt, RN) Datetime: 06/21/2016 18:45 Monitor Mode: Internal (Cheri Marlatt, RN) Frequency (min): 1.5-5 (Cheri Marlatt, RN) Quality: Moderate (Cheri Marlatt, RN) Duration (sec): 60-90 (Cheri Marlatt, RN) Resting Tone (Palpate): Relaxed (Cheri Marlatt, RN) Resting Tone IUP (mmHg): 0 (Cheri Marlatt, RN) Monitor Mode: Internal Scalp Electrode (Cheri Marlatt, RN) FHR Baseline Rate : 140 (Cheri Marlatt, RN) Variability: Moderate 6-25 bpm (Cheri Marlatt, RN) Decelerations: Early (Cheri Marlatt, RN) Pitocin (milliunit): Pitocin Remains (milliunits) @ 12 (Cheri Marlatt, RN) Datetime: 06/21/2016 18:42 NBP Sys/Eugenia/Mean (mmHg): 105 (QS system process) : 57 (QS system process) : 74 (QS system process) Pulse: 118 (QS system process) LaborFlag: Antepartum (QS system process) Datetime: 06/21/2016 18:40 IV/Blood Work: IV Bolus Started (Cheri Antonio, RN) Datetime: 06/21/2016 18:30 Pitocin (milliunit): Pitocin Increased to (milliunits) @ 12 (Cheri Marlatt, RN) Datetime: 06/21/2016 18:27 Dilatation (cm): 6.5 (Cheri Marlatt, RN) Effacement (%): 90 (Cheri Marlatt, RN) Station: 0 (Cheri Marlatt, RN) Exam by: H. Jacob CNM (Cheri Marlatt, RN) Datetime: 06/21/2016 18:26 Monitor Interventions for UA: IUPC Inserted (Cheri Antonio RN) Monitor Mode: Internal Scalp Electrode (Cheri Antonio RN) Comments: FSE inserted by Kaley James CNM (Cheri Antonio RN) Datetime: 06/21/2016 18:20 Provider Reviewed Strip: Yes (Cheri Antonio RN) Communication: Call/Page Placed to Provider (Cheri Antonio RN) Provider Notified (Name): Kaley James TAYLOR (Cheri Antonio RN) Notification Reason: Status Update; Status; Uterine Activity (Cheri Antonio RN) Communication Comments: Provider reviewed strip, decision made to place internal monitors to trace FHTs and CTXs (Cheri Antonio RN) Datetime: 06/21/2016 18:15 Monitor Mode: External (Cheri Antonio RN) Frequency (min): 4-4.5 (Cheri Antonio RN) Quality: Moderate (Cheri Antonio RN) Duration (sec): 60-70 (Cheri Antonio RN) Resting Tone (Palpate): Relaxed (Cheri Antonio RN) Monitor Mode: External US (Cheri Antonio RN) FHR Baseline Rate : 140 (Cheri Antonio RN) Variability: Moderate 6-25 bpm (Cheri Antonio RN) Decelerations: Early (Cheri Antonio RN) Pitocin (milliunit): Pitocin Remains (milliunits) @ 10 (Cheri Antonio RN) Datetime: 06/21/2016 18:13 Monitor Interventions for UA: [place] Adjusted (Cheri Antonio RN) Datetime: 06/21/2016 18:12 NBP Sys/Eugenia/Mean (mmHg): 109 (QS system process) : 64 (QS system process) : 77 (QS system process) Pulse: 116 (QS system process) LaborFlag: Antepartum (QS system process) Datetime: 06/21/2016 18:10 Patient Position/Activity: Left Lateral; Peanut Ball; Low Fowlers (Cheri Antonio RN) Datetime: 06/21/2016 18:00 Monitor Mode: External (Cheri Antonio RN) Resting Tone (Palpate): Relaxed (Cheri Antonio RN) Contraction Comments: UTD frequency and duration, TOCO adjusted (Cheri Antonio RN) Monitor Mode: External US (Cheri Antonio RN) FHR Baseline Rate : 135 (Cheri Antonio RN) Variability: Moderate 6-25 bpm (Cheri Antonio RN) Comments: unable to determine type of decelerations due to being unable to determine ctx pattern (Cheri Antonio RN) Pitocin (milliunit): Pitocin Remains (milliunits) @ 10 (Cheri Antonio RN)
--- NOTE | 2016-06-21 22:00 | L&D Flow Sheet ---
LD Flowsheet Datetime Report Generated by CPN: 06/21/2016 22:00 Datetime: 06/21/2016 21:54 NBP Sys/Eugenia/Mean (mmHg): 120 (QS system process) : 61 (QS system process) : 85 (QS system process) Pulse: 137 (QS system process) Datetime: 06/21/2016 21:45 Stage of : Recovery (Cheri Antonio, RN) Pain Scale: 0 (Cheri Antonio, RN) Pain Presence: None/Denies (Cheri Marlatt, RN) Pain Type: N/A (Cheri Marlatt, RN) Datetime: 06/21/2016 21:35 Stage of : Recovery (Cheri Marlatt, RN) Pain Scale: 0 (Cheri Marlatt, RN) Pain Presence: None/Denies (Cheri Marlatt, RN) Pain Type: N/A (Cheri Marlatt, RN) Datetime: 06/21/2016 21:18 Actions for Decelerations: IV Bolus (Cheri Marlatt, RN) Datetime: 06/21/2016 20:58 Pitocin (milliunit): Pitocin Increased to (milliunits) @ 14 (Cheri Devriestt, RN) Datetime: 06/21/2016 20:56 NBP Sys/Eugenia/Mean (mmHg): 118 (QS system process) : 63 (QS system process) : 84 (QS system process) Pulse: 139 (QS system process) LaborFlag: Antepartum (QS system process) Datetime: 06/21/2016 20:43 Stage 2 Comments: tug of war (Cheri Marlatt, RN) Datetime: 06/21/2016 20:41 NBP Sys/Eugenia/Mean (mmHg): 108 (QS system process) : 60 (QS system process) : 80 (QS system process) Pulse: 146 (QS system process) LaborFlag: Antepartum (QS system process) Datetime: 06/21/2016 20:27 Comments: RN at bedside continuously monitoring FHTs while patient pushing with contractions (Cheri Antonio RN) Pushing: Coached on Pushing (Cheri Antonio RN) Pushing Position: Pushing Lithotomy (Cheri Antonio RN) Datetime: 06/21/2016 20:26 NBP Sys/Eugenia/Mean (mmHg): 127 (QS system process) : 75 (QS system process) : 94 (QS system process) Pulse: 133 (QS system process) LaborFlag: Antepartum (QS system process) Datetime: 06/21/2016 20:22 Dilatation (cm): 10.0 (Cheri Antonio RN) Effacement (%): 100 (Cheri Antonio RN) Station: 1 (Cheri Antonio RN) Exam by: Vincent Antonio RN (Cheri Antonio RN) I/O Interventions: Valenzuela Discontinued (Cheri Antonio RN) Datetime: 06/21/2016 20:12 NBP Sys/Eugenia/Mean (mmHg): 136 (QS system process) : 89 (QS system process) : 104 (QS system process) Pulse: 131 (QS system process) LaborFlag: Antepartum (QS system process) Datetime: 06/21/2016 20:00 Monitor Mode: Internal (Cheri Antonio RN) Frequency (min): 2-3.5 (Cheri Antonio RN) Quality: Moderate to Strong (Cheri Antonio RN) Duration (sec): 70-80 (Cheri Antonio RN) Resting Tone (Palpate): Relaxed (Cheri Antonio RN) Resting Tone IUP (mmHg): 0 (Cheri Antonio RN) Intensity IUP (mmHg): 61 (Cheri Antonio RN) Contraction Comments: MVU 305 (Cheri Antonio RN) Monitor Mode: Internal Scalp Electrode (Cheri Antonio RN) FHR Baseline Rate : 125 (Cheri Antonio RN) Variability: Moderate 6-25 bpm (Cheri Antonio RN) Accelerations: 15X15 (Cheri Antonio RN) Decelerations: Early (Cheri Antonio RN) Pitocin (milliunit): Pitocin Remains (milliunits) @ 12 (Cheri Antonio RN) Patient Position/Activity: Left Lateral; Low Fowlers (Cheri Antonio RN)
[2016-06-21] MEDS ORDERED: ZOLPIDEM TARTRATE 5 MG TABLET PO PRN (22:52)
[2016-06-21] MEDS ORDERED: MEASLES,MUMPS&RUBELLA VACC/PF 0.5 ML VIAL SUBCUT PRN (22:52)
[2016-06-21] MEDS ORDERED: ACETAMINOPHEN WITH CODEINE #3 TABLET PO PRN ×2 (22:52)
[2016-06-21] MEDS ORDERED: DIPH/PERTUSS(ACELL)/TETANUS VAC/PF 0.5 ML SYR (>=10YO) IM PRN (22:52)
[2016-06-21] MEDS ORDERED: DIBUCAINE 1% OINTMENT 28 GM TP PRN (22:52)
[2016-06-21] MEDS ORDERED: OXYTOCIN/NORMAL SALINE 1,000 ML IV PRN (22:52)
[2016-06-21] MEDS ORDERED: BENZOCAINE/MENTHOL AEROSOL SPRAY 56 ML TOP PRN (22:52)
[2016-06-21] MEDS ORDERED: IBUPROFEN 800 MG TABLET PO ONE (23:15)
--- NOTE | 2016-06-21 23:33 | Delivery Summary ---
Del Sum A-C Datetime Report Generated by CPN: 06/21/2016 23:32 ADMISSION DATA Chief Complaint: Uterine Contractions; Suspected Ruptured Membranes Indication for Induction: Not Applicable Admission Impression: Term, Intrauterine ; Ruptured Membranes Admit Provider Comments: SROM approx 1000, pt was in the tub at home Appears to be mec fluid. 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 live male ap 8/9. spontanteous intact placenta 3vc. no complications except thick meconium LABOR SUMMARY EDC: 06/18/2016 00:00 No. Babies in Womb: 1 Attempted: No Labor Anesthesia: Epidural LABOR INFORMATION Reason for Induction: Not Applicable Onset of Labor: 06/21/2016 10:30 Complete Dilatation: 06/21/2016 20:22 Oxytocin: Augmentation Group B Beta Strep: Negative Antibiotics # of Doses: 0 Steroids Given: None Reason Steroids Not Administered: Not Applicable MEMBRANES Membranes Rupture Method: Spontaneous Rupture of Membranes: 06/21/2016 10:30 Length of Rupture (hr): 10.98 Amniotic Fluid Color: Light Meconium Amniotic Fluid Amount: Scant Amniotic Fluid Odor: Normal STAGES OF LABOR Stage 1 hr: 9 Stage 1 min: 52 Stage 2 hr: 1 Stage 2 min: 7 Stage 3 hr: 0 Stage 3 min: 4 Total Time in Labor hr: 11 Total Time in Labor min: 3 VAGINAL DELIVERY Episiotomy: None Laceration Extension: N/A Laceration Type: None Laceration Repair: Not Applicable Sponge Count Correct: N/A CSECTION DELIVERY Primary Indication: N/A Secondary Indication: N/A CSection Incidence: N/A Labor: N/A Elective: N/A CSection Incision: N/A BABY A INFORMATION Delivery Date/Time: 06/21/2016 21:29 Method of Delivery: Vaginal Born in Route : No : N/A Forceps: N/A Vacuum Extraction: N/A Shoulder Dystocia : No PRESENTATION/POSITION BABY A Presentation: Cephalic Cephalic Presentation: Vertex Vertex Position: Right Occipital Anterior Breech Presentation: N/A PLACENTA INFORMATION BABY A Placenta Delivery Time : 06/21/2016 21:33 Placenta Method of Delivery: Spontaneous Placenta Status: Delivered SCORES BABY A Heart Rate 1 min: >100 bpm Resp Effort 1 min: Good Cry Reflex Irritability 1 min: Cough or Sneeze or Pulls Away Muscle Tone 1 min: Active Motion Color 1 min: Blue/Pale Resuscitation Effort 1 min: Tactile Stimulation SCORE 1 MIN: 8 Heart Rate 5 min: >100 bpm Resp Effort 5 min: Good Cry Reflex Irritability 5 min: Cough or Sneeze or Pulls Away Muscle Tone 5 min: Active Motion Color 5 min: Body [place], Extremities Blue Resuscitation Effort 5 min: Tactile Stimulation SCORE 5 MIN: 9 INFANT INFORMATION BABY A Gestational Age at Delivery: 40.3 Gestational Status: Full Term- 39- 40.6 Weeks Infant Outcome : Liveborn Infant Condition : Stable Sex: Male IDENTIFICATION BABY A Verification Date/Time: 06/21/2016 21:58 ID Band Number: [id number] Mother's Name Verified: Yes Infant RN Verifying Infant: Vincent Antonio RN Additional Verifying Personnel: SVerona Fritz RN WEIGHT/LENGTH BABY A Infant Birthweight (gm): 3420 Weight (lb): 7 Infant Weight (oz): 9 Length (in): 20.75 Length (cm): 52.71 CORD INFORMATION BABY A No. Cord Vessels: 3 Nuchal Cord : N/A Cord Blood Taken: Yes-For Eval (Mom's Blood Type - or O+) Infant Suction: Mouth; Nose ASSESSMENT BABY A Complications: Meconium Physical Findings at Delivery: Caput Succedaneum Infant Respirations: Appears Normal Skin to Skin: Yes Skin to Skin Time (min): 70 National Secretary/ALS Called : No Care By: Tami Collier RN Transferred To: Remains with Mother BABY B INFORMATION : N/A SIGNATURES Signature: with User ID: [email or web address]
--- NOTE | 2016-06-21 23:47 | Admission Physical ---
Datetime Report Generated by CPN: 06/21/2016 23:47 CURRENT ADMISSION Hx Assessment: The History has been Reviewed and is Current Chief Complaint: Uterine Contractions; Suspected Ruptured Membranes Indication for Induction: Not Applicable Admit Plan: Admit to Unit; Initiate Labor Protocol ALLERGIES Medication Allergies: No Medication Allergies: No Known Allergies (06/21/2016) Medication Allergies: No Known Allergies (06/20/2016) Latex: No Latex Allergies Food Allergies: none Environmental Allergies: none OBSTETRICAL HISTORY EDC: 06/18/2016 00:00 : 1 Para: 0 Term: 0 : 0 SAB: 0 IAB: 0 Ectopic: 0 Livin Cesareans: 0 VBACs: 0 Multiple Births: 0 Gestational Diabetes: No Rh Sensitization: No Incompetent Cervix: No BECCA: No Infertility: No ART Treatment: No Uterine Anomaly: No IUGR: No Hx Previous C/S: No Macrosomia: No Hx Loss/Stillborn: No PIH: No Hx : No Placenta Previa/Abruption: No Depression/PP Depression: No PTL/PROM: No Post Hemorrhage: No Current Procedures: Ultrasound Obstetrical History Comments: G1 Current SEE RECORDS Alcohol: No Marijuana : No Cocaine: No Other Illicit Drugs: No Cigarettes: Never Smoker. [id number] MEDICAL HISTORY Diabetes: No Blood Transfusion: No Pulmonary Disease (Asthma, TB): Yes Breast Disease: No Hypertension: No Inspector Chief Surgery: No Heart Disease: No Hosp/Surgery: Yes Autoimmune Disorder: No Anesthetic Complications: No Kidney Disease: No Abnormal Pap Smear: No Neuro/Epilepsy: No Psychiatric Disorders: No Other Medical Diseases: No Hepatitis/Liver Disease: No Significant Family History: No Varicosities/Phlebitis: No Trauma/Violence : No Thyroid Dysfunction: No Medical History Comments: Obesity; Patent ductus, surgery at age 5, Childhood asthma INFECTIOUS HISTORY Gonorrhea: No Genital Herpes: No Chlamydia: No Tuberculosis: No Syphilis: No Hepatitis: No HIV/AIDS Exposure: No Rash or Viral Illness: No HPV: No Infectious History Comments: Hx GC/Chlamydia, JUAN LUIS Neg PHYSICAL EXAM General: Normal HEENT: Normal Neurologic: Normal Thyroid: Deferred Heart: Normal Lungs: Normal Breast: Normal Back: Normal Abdomen: Normal Genitourinary Exam: Normal Extremities: Normal DTRs: Normal Pelvic Type: Adequate Vital Signs: Reviewed VAGINAL EXAM Dilatation: 7 Dilatation: 3 Effacement: 90 Effacement: 80 Station: 0 Station: -1 Contraction Comments: 2-4 Contraction Comments: irregular MEMBRANES Membranes: Ruptured Membranes: Ruptured Amniotic Fluid Color: Meconium, Light Amniotic Fluid Color: Meconium, Light FETUS A EGA: 40.3 Monitoring: External US FHR- Baseline: 145 Variability: Moderate 6-25bpm Accelerations: 15X15 Decelerations: Early; Variable FHR Category: Category II Estimated Weight (gm): 3400 Presentation: Vertex Admit Comment: SROM approx 1000, pt was in the tub at home Appears to be mec fluid. 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
[2016-06-22] MEDS: IBUPROFEN 800 MG TABLET PO SCH ×3 (06:16→21:39)
--- NOTE | 2016-06-22 07:00 | L&D Flow Sheet ---
LD Flowsheet Datetime Report Generated by CPN: 06/22/2016 07:00 Datetime: 06/21/2016 23:15 Pain Scale: 0 (Cheri Marlatt, RN) Pain Presence: None/Denies (Cheri Marlatt, RN) Pain Type: N/A (Cheri Marlatt, RN) Datetime: 06/21/2016 22:55 Stage of : Recovery (Cheri Marlatt, RN) Pain Scale: 0 (Cheri Marlatt, RN) Pain Presence: None/Denies (Cheri Antonio, RN) Pain Type: N/A (Cheri Antonio, RN) Datetime: 06/21/2016 22:41 NBP Sys/Eugenia/Mean (mmHg): 121 (QS system process) : 64 (QS system process) : 83 (QS system process) Pulse: 127 (QS system process) Datetime: 06/21/2016 22:40 Stage of : Recovery (Cheri Antonio, RN) Pain Scale: 0 (Cheri Antonio, RN) Pain Presence: None/Denies (Cheri Antonio, RN) Pain Type: N/A (Cheri Antonio, RN) Datetime: 06/21/2016 22:25 Stage of : Recovery (Cheri Antonio RN) Pain Scale: 0 (Cheri Antonio RN) Pain Presence: None/Denies (Cheri Antonio RN) Pain Type: N/A (Cheri Antonio, MARLENE) Datetime: 06/21/2016 22:12 NBP Sys/Eugenia/Mean (mmHg): 125 (QS system process) : 70 (QS system process) : 90 (QS system process) Pulse: 126 (QS system process) Datetime: 06/21/2016 22:10 Stage of : Recovery (Cheri Antonio RN) Pain Scale: 0 (Cheri Antonio RN) Pain Presence: None/Denies (Cheri Antonio RN) Pain Type: N/A (Cheri Marlatt, RN) Datetime: 06/21/2016 21:55 Stage of : Recovery (Cheri Marlatt, RN) Pain Scale: 0 (Cheri Marlatt, RN) Pain Presence: None/Denies (Cheri Marlatt, RN) Pain Type: N/A (Cheri Marlatt, RN) Datetime: 06/21/2016 21:54 NBP Sys/Eugenia/Mean (mmHg): 120 (QS system process) : 61 (QS system process) : 85 (QS system process) Pulse: 137 (QS system process) Datetime: 06/21/2016 21:45 Stage of : Recovery (Cheri Marlatt, RN) Pain Scale: 0 (Cheri Marlatt, RN) Pain Presence: None/Denies (Cheri Marlatt, RN) Pain Type: N/A (Cheri Marlatt, RN) Datetime: 06/21/2016 21:35 Stage of : Recovery (Cheri Marlatt, RN) Pain Scale: 0 (Cheri Marlatt, RN) Pain Presence: None/Denies (Cheri Marlatt, RN) Pain Type: N/A (Cheri Marlatt, RN) Datetime: 06/21/2016 21:27 Monitor Mode: Internal (Cheri Marlatt, RN) Frequency (min): 1.5-2 (Hceri Marlatt, RN) Quality: Moderate to Strong (Cheri Marlatt, RN) Duration (sec): 60-80 (Cheri Marlatt, RN) Resting Tone (Palpate): Relaxed (Cheri Antonio, RN) Monitor Mode: Internal Scalp Electrode (Cheri Antonio, RN) FHR Baseline Changes: Unable to Determine (Cheri Antonio, RN) Variability: Moderate 6-25 bpm (Cheri Antonio, RN) Pitocin (milliunit): Pitocin Remains (milliunits) @ 14 (Cheri Antonio, RN) Datetime: 06/21/2016 21:18 Actions for Decelerations: IV Bolus (Cheri Antonio, RN) Datetime: 06/21/2016 21:15 Monitor Mode: Internal (Cheri Antonio, RN) Frequency (min): 1-3 (Cheri Antonio, RN) Quality: Moderate to Strong (Cheri Antonio RN) Duration (sec): 60 (Cheri Antonio, RN) Resting Tone (Palpate): Relaxed (Cheri Antonio, RN) Monitor Mode: Internal Scalp Electrode (Cheri Marlatt, RN) FHR Baseline Changes: Unable to Determine (Cheri Marlatt, RN) Variability: Moderate 6-25 bpm (Cheri Marlatt, RN) Pitocin (milliunit): Pitocin Remains (milliunits) @ 14 (Cheri Marlatt, RN) Datetime: 06/21/2016 21:00 Monitor Mode: Internal (Cheri Marlatt, RN) Frequency (min): 1.5-3 (Cheri Marlatt, RN) Quality: Moderate to Strong (Cheri Marlatt, RN) Duration (sec): 60-70 (Cheri Marlatt, RN) Resting Tone (Palpate): Relaxed (Cheri Marlatt, RN) Monitor Mode: Internal Scalp Electrode (Cheri Marlatt, RN) FHR Baseline Rate : 130 (Cheri Marlatt, RN) Variability: Moderate 6-25 bpm (Cheri Marlatt, RN) Pitocin (milliunit): Pitocin Remains (milliunits) @ 14 (Cheri Marlatt, RN) Datetime: 06/21/2016 20:58 Pitocin (milliunit): Pitocin Increased to (milliunits) @ 14 (Cheri Antonio RN) Datetime: 06/21/2016 20:56 NBP Sys/Eugenia/Mean (mmHg): 118 (QS system process) : 63 (QS system process) : 84 (QS system process) Pulse: 139 (QS system process) LaborFlag: Antepartum (QS system process) Datetime: 06/21/2016 20:45 Monitor Mode: Internal (Cheri Antonio RN) Frequency (min): 1.5-3 (Cheri Antonio RN) Quality: Moderate to Strong (Cheri Antonio RN) Duration (sec): 70-90 (Cheri Antonio RN) Resting Tone (Palpate): Relaxed (Cheri Antonio RN) Monitor Mode: Internal Scalp Electrode (Cheri Antonio RN) FHR Baseline Rate : 130 (Cheri Antonio RN) Variability: Moderate 6-25 bpm (Cheri Atnonio, RN) Pitocin (milliunit): Pitocin Remains (milliunits) @ 12 (Cheri Antonio, RN) Datetime: 06/21/2016 20:43 Stage 2 Comments: tug of war (Cheri Antonio, RN) Datetime: 06/21/2016 20:41 NBP Sys/Eugenia/Mean (mmHg): 108 (QS system process) : 60 (QS system process) : 80 (QS system process) Pulse: 146 (QS system process) LaborFlag: Antepartum (QS system process) Datetime: 06/21/2016 20:30 Monitor Mode: Internal (Cheri Marlatt, RN) Frequency (min): 2-3 (Cheri Marlatt, RN) Quality: Moderate to Strong (Cheri Marlatt, RN) Duration (sec): 70-80 (Cheri Marlatt, RN) Resting Tone (Palpate): Relaxed (Cheri Marlatt, RN) Monitor Mode: Internal Scalp Electrode (Cheri Marlatt, RN) FHR Baseline Rate : 135 (Cheri Marlatt, RN) Variability: Moderate 6-25 bpm (Cheri Marlatt, RN) Decelerations: Late; Variable (Cheri Marlatt, RN) Pitocin (milliunit): Pitocin Remains (milliunits) @ 12 (Cheri Marlatt, RN) Datetime: 06/21/2016 20:27 Comments: RN at bedside continuously monitoring FHTs while patient pushing with contractions (Cheri Marlatt, RN) Pushing: Coached on Pushing (Cheri Marlatt, RN) Pushing Position: Pushing Lithotomy (Cheri Marlatt, RN) Datetime: 06/21/2016 20:26 NBP Sys/Eugenia/Mean (mmHg): 127 (QS system process) : 75 (QS system process) : 94 (QS system process) Pulse: 133 (QS system process) LaborFlag: Antepartum (QS system process) Datetime: 06/21/2016 20:22 Dilatation (cm): 10.0 (Cheri Antonio RN) Effacement (%): 100 (Cheri Antonio RN) Station: 1 (Cheri Antonio RN) Exam by: Vincent Antonio RN (Cheri Antonio RN) I/O Interventions: Valenzuela Discontinued (Cheri Antonio RN) Datetime: 06/21/2016 20:15 Monitor Mode: Internal (Cheri Antonio RN) Frequency (min): 2-2.5 (Cheri Marlatt, RN) Quality: Moderate to Strong (Cheri Marlatt, RN) Duration (sec): 80-90 (Cheri Marlatt, RN) Resting Tone (Palpate): Relaxed (Cheri Marlatt, RN) Monitor Mode: Internal Scalp Electrode (Cheri Marlatt, RN) FHR Baseline Rate : 130 (Cheri Marlatt, RN) Variability: Moderate 6-25 bpm (Cheri Marlatt, RN) Accelerations: 15X15 (Cheri Marlatt, RN) Decelerations: Early (Cheri Marlatt, RN) Pitocin (milliunit): Pitocin Remains (milliunits) @ 12 (Cheri Marlatt, RN) Datetime: 06/21/2016 20:12 NBP Sys/Eugenia/Mean (mmHg): 136 (QS system process) : 89 (QS system process) : 104 (QS system process) Pulse: 131 (QS system process) LaborFlag: Antepartum (QS system process) Datetime: 06/21/2016 20:00 Monitor Mode: Internal (Cheri Devriestt, RN) Frequency (min): 2-3.5 (Cheri Almanzarlatt, RN) Quality: Moderate to Strong (Cheri Devriestt, RN) Duration (sec): 70-80 (Cheri Jenellelatt, RN) Resting Tone (Palpate): Relaxed (Cheri Jenellelatt, RN) Resting Tone IUP (mmHg): 0 (Cheri Jenellelatt, RN) Intensity IUP (mmHg): 61 (Cheri Jenellelatt, RN) Contraction Comments: MVU 305 (Cheri Devriestt, RN) Monitor Mode: Internal Scalp Electrode (Cheri Antonio, RN) FHR Baseline Rate : 125 (Cheri Almanzarlatt, RN) Variability: Moderate 6-25 bpm (Cheri Jenellelatt, RN) Accelerations: 15X15 (Cheri Marlatt, RN) Decelerations: Early (Cheri Jenellelatt, RN) Pitocin (milliunit): Pitocin Remains (milliunits) @ 12 (Cheri Antonio, RN) Patient Position/Activity: Left Lateral; Low Fowlers (Cheri Antonio, RN) Datetime: 06/21/2016 19:59 Vaginal Exam Comments: patient states she is feeling more pressure. Upon SVE pt still has anterior lip (Cheri Antonio, RN) Datetime: 06/21/2016 19:56 NBP Sys/Eugenia/Mean (mmHg): 116 (QS system process) : 67 (QS system process) : 86 (QS system process) Pulse: 133 (QS system process) LaborFlag: Antepartum (QS system process) Datetime: 06/21/2016 19:45 Monitor Mode: Internal (Cheri Antonio, RN) Frequency (min): 1.5-3 (Cheri Antonio, RN) Quality: Moderate to Strong (Cheri Devriestt, RN) Duration (sec): 70-80 (Cheri Kaycett, RN) Resting Tone (Palpate): Relaxed (Cheri Devriestt, RN) Monitor Mode: Internal Scalp Electrode (Cheri Antonio, RN) FHR Baseline Rate : 140 (Cheri Kaycett, RN) Variability: Moderate 6-25 bpm (Cheri Marlatt, RN) Decelerations: Early (Cheri Marlatt, RN) Pitocin (milliunit): Pitocin Remains (milliunits) @ 12 (Cheri Kaycett, RN) Datetime: 06/21/2016 19:41 NBP Sys/Eugenia/Mean (mmHg): 109 (QS system process) : 57 (QS system process) : 77 (QS system process) Pulse: 136 (QS system process) Temperature (F): 98.2 (Cheri Marlatt, RN) Temperature (C): 36.8 (QS system process) LaborFlag: Antepartum (QS system process) Datetime: 06/21/2016 19:30 Monitor Mode: Internal (Cheri Marlatt, RN) Frequency (min): 2.5 (Cheri Marlatt, RN) Quality: Moderate to Strong (Cheri Marlatt, RN) Duration (sec): 60-80 (Cheri Marlatt, RN) Resting Tone (Palpate): Relaxed (Chrei Marlatt, RN) Monitor Mode: Internal Scalp Electrode (Cheri Marlatt, RN) FHR Baseline Rate : 130 (Cheri Marlatt, RN) Variability: Moderate 6-25 bpm (Cheri Marlatt, RN) Accelerations: 15X15 (Cheri Marlatt, RN) Decelerations: Early (Cheri Marlatt, RN) Datetime: 06/21/2016 19:28 Patient Position/Activity: Right Lateral; Peanut Ball (Cheri Marlatt, RN) Datetime: 06/21/2016 19:27 Dilatation (cm): 9.5 (Cheri Marlatt, RN) Effacement (%): 100 (Cheri Marlatt, RN) Station: 1 (Cheri Marlatt, RN) Exam by: Vincent Antonio RN (Cheri Marlatt, RN) Datetime: 06/21/2016 19:26 NBP Sys/Eugenia/Mean (mmHg): 111 (QS system process) : 65 (QS system process) : 80 (QS system process) Pulse: 126 (QS system process) LaborFlag: Antepartum (QS system process) Datetime: 06/21/2016 19:19 IV/Blood Work: IV Infusing per Order (Cheri Antonio RN) Patient Care Comments: LR at 125ml/hr (Cheri Antonio RN) Datetime: 06/21/2016 19:15 Monitor Mode: Internal (Cheri Antonio RN) Frequency (min): 2-2.5 (Cheri Antonio RN) Quality: Moderate to Strong (Cheri Antonio RN) Duration (sec): 60-70 (Cheri Antonio RN) Resting Tone (Palpate): Relaxed (Cheri Antonio RN) Monitor Mode: Internal Scalp Electrode (Cheri Antonio RN) FHR Baseline Rate : 125 (Cheri Antonio RN) Variability: Moderate 6-25 bpm (Cheri Antonio RN) Accelerations: 15X15 (Cheri Antonio RN) Decelerations: Early (Cheri Antonio RN) Pitocin (milliunit): Pitocin Remains (milliunits) @ 12 (Cheri Antonio RN) Datetime: 06/21/2016 19:12 NBP Sys/Eugenia/Mean (mmHg): 113 (QS system process) : 67 (QS system process) : 82 (QS system process) Pulse: 121 (QS system process) LaborFlag: Antepartum (QS system process) Datetime: 06/21/2016 19:00 Monitor Mode: Internal (Cheri Antonio RN) Frequency (min): 1.5-3 (Cheri Antonio RN) Quality: Moderate (Cheri Antonio RN) Duration (sec): 60-80 (Cheri Antonio RN) Resting Tone (Palpate): Relaxed (Cheri Antonio RN) Resting Tone IUP (mmHg): 0 (Cheri Antonio RN) Intensity IUP (mmHg): 66 (Cheri Antonio RN) Contraction Comments: MVU 330 (Cheri Antonio RN) Monitor Mode: Internal Scalp Electrode (Cheri Antonio RN) FHR Baseline Rate : 135 (Cheri Antonio RN) Variability: Moderate 6-25 bpm (Cheri Antonio RN) Decelerations: Early (Cheri Antonio RN) Pitocin (milliunit): Pitocin Remains (milliunits) @ 12 (Cheri Antonio RN)
[2016-06-22 07:52] LABS: HEMATOCRIT 29.1 % (36.0-47.0); HEMOGLOBIN 9.5 g/dL (12.0-15.5); HGB HCT DIFFERENCE -0.6; MEAN CORPUSCULAR HGB CONC 32.6 g/dL (32.0-36.0); MEAN CORPUSCULAR VOLUME 86 fl (80-97); RED BLOOD COUNT 3.39 10^6/uL (3.72-5.28); RED CELL DISTRIBUTION WIDTH 15.1 % (11.5-14.0); WHITE BLOOD COUNT 20.5 10^3/uL (4.0-10.5)
[2016-06-22] MEDS: SENNOSIDES/DOCUSATE 8.6-50 MG 1 EACH TABLET PO SCH (10:18)
[2016-06-22] MEDS: FERROUS SULFATE 325 MG TABLET PO SCH ×2 (10:18→19:00)
[2016-06-22] MEDS: DOCUSATE SODIUM 100 MG CAPSULE PO SCH ×2 (10:18→19:00)
[2016-06-22] MEDS: PRENATAL VITAMIN W-O CA NO5/FE FUMARATE/FA CAPSULE PO SCH (10:18)
--- NOTE | 2016-06-22 16:17 | PDOC PROGRESS REPORT ---
Subjective-OB Subjective: Post Delivery Day:1 21 year old s/p . Ambulating, voiding and without difficulty. Denies any needs at this time Physical Exam (OB) Vital Signs: Temp Pulse Resp BP Pulse Ox 98.2 F 96 15 107/62 97 06/22/16 07:56 06/22/16 07:56 06/22/16 07:56 06/22/16 07:56 06/22/16 07:56 Intake & Output 06/21/16 06/22/16 06/23/16 06:59 06:59 06:59 Weight 84.2 kg - General General Appearance: Appears well In distress: None - PIH/Pre-Eclampsia Clonus: Negative Headache: Absent Epigastric Pain: No Visual Changes: No - Episiotomy/Laceration Site Condition: N/A - Lochia Lochia Amount: Small 10-25 ml Lochia Color: Rubra/Red - Abdomen Description: Soft, Flat Hernia Present: No Fundal Description: Firm, Midline Fundal Height: u/u - u/2 - Respiratory Respiratory Status: No respiratory distress - Extremities Upper extremity: Normal inspection Lower extremities: Normal inspection - Neurological Cognition: Normal Orientation: AAOx4 - Psychological Associated symptoms: Normal affect, Normal mood - bonding well with baby. Helpful family at bedside Objective-Diagnostic Laboratory: 06/22/16 07:27 06/22/16 07:27 WBC 20.5 H RBC 3.39 L Hgb 9.5 L Hct 29.1 L MCV 86 MCH 28.0 MCHC 32.6 RDW 15.1 H Plt Count 241 Assessment and Plan(PN) - Assessment and Plan (1) Vaginal delivery Is this a current diagnosis for this admission?: YesPlan: continue stay (2) Anemia Qualifiers: Anemia type: iron deficiency Is this a current diagnosis for this admission?: YesPlan: iron supplementation - Time Spent with Patient Time with patient: 15-25 minutes Medications reviewed and adjusted accordingly: Yes - Disposition Anticipated Discharge: Home Within: within 24 hours
--- NOTE | 2016-06-22 18:00 | L&D Current Admission ---
Current Admit Datetime Report Generated by CPN: 06/22/2016 18:00 ADMISSION INFORMATION Current Admit Date/Time: 06/21/2016 12:19 (06/21/2016 11:50:Radha Rivera RN) Reason for Admission: Rupture of Membranes (06/21/2016 11:50:Radha Rivera RN) Chief Complaint: Contractions (06/21/2016 11:50:Cheri Antonio RN) Medications During : Vitamin (06/21/2016 11:50:Radha Rivera RN) EGA per Dates: 40.3 (06/21/2016 11:50:QS system process) Method of Arrival: Wheelchair (06/21/2016 11:50:Radha Rivera RN) Admitted From: Home (06/21/2016 11:50:Radha Rivera RN) Reason for Induction: Not Applicable (06/21/2016 11:50:Radha Rivera RN) Records Available: Yes (06/21/2016 11:50:Radha Rivera RN) General Admission Information: Reviewed (06/21/2016 11:50:Radha Rivera RN) BELONGINGS/ADVANCED DIRECTIVES Valuables/Personal Effects: Cell Phone; Eyeglasses; Jewelry (06/21/2016 11:50:Cheri Antonio RN) Other Belongings: see signed belongings consent (06/21/2016 11:50:Radha Rivera RN) Disposition of Belongings: Kept with Patient (06/21/2016 11:50:Radha Rivera RN) Advance Direct for Healthcare: No, and Wants No Information (06/21/2016 11:50:Radha Rivera RN) Durable Power of Ground Crew Linesman: No (06/21/2016 11:50:Radha Rivrea RN) Living Will: No (06/21/2016 11:50:Radha Rivera RN) Organ Donor: Yes (06/21/2016 11:50:Radha Rivera RN) Pt Rights Information Given: Yes (06/21/2016 11:50:Radha Rivera RN) Pt Understands Pt Rights: Yes (06/21/2016 11:50:Radha Rivera RN) LEARNING ASSESSMENT Knowledge Level: Understands L_D Process; Understands Care Activities; Had Pre-Hospital Education; Understands Diagnosis (06/21/2016 11:50:Radha Rivera RN) Barriers to Learning: None (06/21/2016 11:50:Radha Rivera RN) Learning Readiness: Motivated (06/21/2016 11:50:Radha Rivera RN) Learns Best By: 1 to 1 Instruction (06/21/2016 11:50:Radha Rivera RN) Learning Needs: Labor and Delivery Process; Pain Management; Symptoms to Report; Treatment Plan; Medication; Diagnosis; Nutrition; Equipment; Infant Care; Community Resources (06/21/2016 11:50:Radha Rivera RN) DOMESTIC VIOLANCE SCREENING Dom Viol Threatened/Hurt: No (06/21/2016 11:50:Cheri Antonio RN) Hx of Abuse/Neglect past 2yrs: No (06/21/2016 11:50:Cheri Antonio RN) Feel Unsafe Going Home: No (06/21/2016 11:50:Cheri Antonio RN) Addt'l Observ Indicating Abuse: No (06/21/2016 11:50:Cheri Antonio RN) Reason Unable to Complete Screen: N/A, Screen Completed (06/21/2016 11:50:Cheri Antonio RN) Considered Personal Harm/Suicide: No (06/21/2016 11:50:Cheri Antonio RN) NUTRITIONAL/FUNCTIONAL SCREENING Problem with Appetite >5 Days: No (06/21/2016 11:50:Radha Rivera RN) Chew/Swallow Difficulties: No (06/21/2016 11:50:Radha Rivera RN) Inappropriate Wt Gain/Loss: No (06/21/2016 11:50:Radha Rivera RN) Presence Skin Breakdown/Ulcer: No (06/21/2016 11:50:Radha Rivera RN) Special Diet: No (06/21/2016 11:50:Radha Rivera RN) Pt Requests Washery Engineer Visit: No (06/21/2016 11:50:Radha Rivera RN) Hx of Any of the Following?: N/A (06/21/2016 11:50:Radha Rivera RN) New Diagnosis of: N/A (06/21/2016 11:50:Radha Rivera RN) Requires Assist w/Ambulation: No (06/21/2016 11:50:Radha Rivera RN) Uses Assist Device to Ambulate: No (06/21/2016 11:50:Radha Rivera RN) Pt Requires Help w/ADL's: No (06/21/2016 11:50:Radha Rivera RN)
--- NOTE | 2016-06-22 18:01 | L&D General Admission ---
General Admit Datetime Report Generated by CPN: 06/22/2016 18:00 INFORMATION Patient Age: 21 (06/13/2016 08:57:QS system process) EDC: 06/18/2016 00:00 (06/20/2016 14:05:Koffi Reed RN) LMP: 09/12/2015 00:00 (06/20/2016 14:05:Koffi Reed RN) : 1 (06/20/2016 14:05:Koffi Reed RN) Para: 0 (06/20/2016 14:05:Koffi Reed RN) Term: 0 (06/20/2016 14:05:Maureen Watson RN) : 0 (06/20/2016 14:05:Maureen Watson RN) Spontaneous Abortions: 0 (06/20/2016 14:05:Maureen Watson RN) Induced Abortions: 0 (06/20/2016 14:05:Maureen Watson RN) Livin (06/20/2016 14:05:Maureen Watson RN) Cesareans: 0 (06/20/2016 14:05:Maureen Watson RN) VBACs: 0 (06/20/2016 14:05:Maureen Watson RN) Ectopic: 0 (06/20/2016 14:05:Maureen Watson RN) Multiple Births: 0 (06/20/2016 14:05:Maureen Watson RN) Baby, Number in Womb: 1 (06/20/2016 14:05:Koffi Reed RN) CARE Primary Beautician Apprentice: [facility] (06/20/2016 14:05:Koffi Reed RN) Beautician Apprentice Other: [facility] (06/20/2016 14:05:Koffi Reed RN) Adequate Care: Yes (06/20/2016 14:05:Maureen Watson RN) Prepregnancy Weight (lb): 155 (06/20/2016 14:05:Koffi Reed RN) Prepregnancy Weight (kg): 70.5 (06/20/2016 14:05:QS system process) Height (in): 62 (06/22/2016 10:20:QS system process) ALLERGIES Medication Allergy: No (06/20/2016 14:05:Koffi Reed RN) Medication Allergies: No Known Allergies (06/21/2016) (06/21/2016 03:14:QS system process) Latex Allergy: No Latex Allergies (06/20/2016 14:05:Koffi Reed RN) Food Allergies: none (06/20/2016 14:05:Maureen Watson RN) Environmental Allergies: none (06/20/2016 14:05:Maureen Watson RN) COMMUNICATION Primary Language: Korean (06/20/2016 14:05:Koffi Reed RN) Medical Tx Preferred Language: Korean (06/20/2016 14:05:Maureen Watson RN) Communication Barrier(s): None (06/20/2016 14:05:Koffi Reed RN) DEMOGRAPHICS Address: [address] [place] [id number] (06/13/2016 08:57:QS system process) Zipcode: [address] (06/13/2016 08:57:QS system process) Home (06/21/2016 03:05:QS system process) SSN: [id number] (06/13/2016 08:57:QS system process) Next of Kin Name: VANESSA JAQUEZ (06/13/2016 08:57:QS system process) Next of Kin (06/13/2016 08:57:QS system process) Next of Kin Relationship: MO (06/13/2016 08:57:QS system process) Date of : 1995 (06/13/2016 08:57:QS system process) Marital Status: Single (06/13/2016 08:57:QS system process) Sex: Female (06/13/2016 08:57:QS system process) Occupation: None (06/20/2016 14:05:Koffi Reed RN) Race: (06/13/2016 08:57:QS system process) Ethnicity: Non- or (06/13/2016 08:57:QS system process) Restoration: Other (06/13/2016 08:57:QS system process) Education: 12 (06/20/2016 14:05:Koffi Reed RN) FOB Involved: Yes (06/20/2016 14:05:Koffi Reed RN) Father of Baby Name: Krystle Peoples (06/20/2016 14:05:Koffi Reed RN) Person Auth to release pt PHI: VANESSA JAQUEZ (06/20/2016 14:05:Koffi Reed RN) DRUG AND ALCOHOL USE Alcohol: No (06/20/2016 14:05:Koffi Reed RN) Cigarettes: Never Smoker. [id number] (06/20/2016 14:05:Koffi Reed, MARLENE) Marijuana: No (06/20/2016 14:05:Koffi Reed, RN) Cocaine: No (06/20/2016 14:05:Koffi Reed RN) Other Illicit Drugs: No (06/20/2016 14:05:Koffi Reed, RN) VACCINE HISTORY Influenza Vaccine: No (06/20/2016 14:05:Koffi Reed RN) Pneumococcal Vaccine: No (06/20/2016 14:05:Koffi Reed RN) Tetanus Vaccine: Uncertain (06/20/2016 14:05:Koffi Reed RN) Tdap Vaccine: No (06/20/2016 14:05:Koffi Reed RN) Hepatitis B Vaccine: Yes (06/20/2016 14:05:Koffi Reed RN) Program Proposals Coordinator: [facility] (06/20/2016 14:05:Koffi Reed RN) Feeding Preference: Both (06/20/2016 14:05:Koffi Reed RN) Benefit of Breast Feed Discussed: Yes (06/20/2016 14:05:Koffi Reed RN) Circumcision: Yes (06/20/2016 14:05:Koffi Reed RN) Classes Attended: No (06/20/2016 14:05:Koffi Reed RN) Tubal Ligation: No (06/20/2016 14:05:Koffi Reed RN) Tubal Authorization Signed: N/A (06/20/2016 14:05:Koffi Reed RN) Consent: N/A (06/20/2016 14:05:Koffi Reed RN) Consent Signed: N/A (06/20/2016 14:05:Koffi Reed RN) Pain Management Plans: Epidural (06/20/2016 14:05:Koffi Reed RN) Plans for Labor and Delivery: None (06/20/2016 14:05:Koffi Reed RN) Support Person: Krystle Peoples (06/20/2016 14:05:Koffi Reed RN) Support Person Relationship: Significant Other (06/20/2016 14:05:Koffi Reed RN) Cultural/Spritual Practice: No (06/20/2016 14:05:Koffi Reed RN) Spir/Cult Dietary Needs: No (06/20/2016 14:05:Koffi Reed RN) LIVING SITUATION/DISCHARGE PLAN Living Arrangements: House (06/20/2016 14:05:Koffi Reed RN) Adequate Access to:: Electric; Heat; Refrigeration; Plumbing/Running water; Phone; Transportation (06/20/2016 14:05:Koffi Reed RN) WIC Program: Yes (06/20/2016 14:05:Koffi Reed RN) Discharge Sausage Cooker Person: Vanessa Jaquez (06/20/2016 14:05:Koffi Reed RN) Person to Help after Discharge: Krystle Jett (06/20/2016 14:05:Koffi Reed RN) Currently Using Commun Resources: Yes (06/20/2016 14:05:Koffi Reed RN) Specify Current Resource Used: Medicaid (06/20/2016 14:05:Koffi Reed RN) Outside Agency/Impregnator: No (06/20/2016 14:05:Koffi Reed RN) Car Seat for Discharge: Yes (06/20/2016 14:05:Koffi Reed RN) Adoption Requested: No (06/20/2016 14:05:Koffi Reed RN) Pt Contact w/infant Post : N/A (06/20/2016 14:05:Koffi Reed RN) LABS Blood Type: O Positive (06/20/2016 14:05:Koffi Reed RN) Antibody Screen: negtive (06/20/2016 14:05:Bina Grubbs RN) Hemoglobin: 9.5 L (06/22/2016 07:27:QS system process) Hematocrit: 29.1 L (06/22/2016 07:27:QS system process) MCV: 86 (06/22/2016 07:27:QS system process) Group Beta Strep: Negative (06/20/2016 14:05:Koffi Reed RN) Gonorrhea: Negative (06/20/2016 14:05:Koffi Reed RN) Chlamydia: Negative (06/20/2016 14:05:Koffi Reed RN) RPR/VDRL: Nonreactive (06/20/2016 14:05:Koffi Reed RN) HIV Exposure Test: Negative (06/20/2016 14:05:Koffi Reed RN) Hepatitis B: Negative (06/20/2016 14:05:Bina Grubbs RN) Rubella: Immune (06/20/2016 14:05:Bina Grubbs RN) OB/PREVIOUS HISTORY LMP: 09/12/2015 00:00 (06/20/2016 14:05:Koffi Reed RN) Previous Procedures: None (06/20/2016 14:05:Koffi Reed RN) Current Procedures: Ultrasound (06/20/2016 14:05:Koffi Reed RN) History of Previous : No (06/20/2016 14:05:Koffi Reed RN) History of Gestational Diabetes: No (06/20/2016 14:05:Koffi Reed RN) History of PIH: No (06/20/2016 14:05:Koffi Reed RN) History of Incompetent Cervix: No (06/20/2016 14:05:Koffi Reed RN) History of Placenta Previa/Abrup: No (06/20/2016 14:05:Koffi Reed RN) History of Macrosomia: No (06/20/2016 14:05:Koffi Reed RN) History of IUGR: No (06/20/2016 14:05:Koffi Reed RN) History of Hemorrhage: No (06/20/2016 14:05:Koffi Reed RN) History of Loss/Stillborn: No (06/20/2016 14:05:Koffi Reed RN) History of : No (06/20/2016 14:05:Koffi Reed RN) History of D (Rh) Sensitization: No (06/20/2016 14:05:Koffi Reed RN) History Recurrent Loss/Stillborn: No (06/20/2016 14:05:Koffi Reed RN) History Depression/PP Depression: No (06/20/2016 14:05:Koffi Reed RN) History of Uterine Anomaly/BECCA: No (06/20/2016 14:05:Koffi Reed RN) History of Infertility: No (06/20/2016 14:05:Koffi Reed RN) History of ART Treatment: No (06/20/2016 14:05:Koffi Reed RN) History of BECCA: No (06/20/2016 14:05:Koffi Reed RN) Comments Obstetrical History: G1 Current (06/20/2016 14:05:Koffi Reed RN) MEDICAL HISTORY Med Hx Diabetes: No (06/20/2016 14:05:Koffi Reed RN) Med Hx Hypertension: No (06/20/2016 14:05:Koffi Reed RN) Med Hx Heart Disease: No (06/20/2016 14:05:Koffi Reed RN) Med Hx Autoimmune Disorder: No (06/20/2016 14:05:Koffi Reed RN) Med Hx Kidney Disease/UTI: No (06/20/2016 14:05:Koffi Reed RN) Med Hx Neurologic/Epilepsy: No (06/20/2016 14:05:Koffi Reed RN) Med Hx Psychiatric Disorders: No (06/20/2016 14:05:Koffi Reed RN) Med Hx Hepatitis/Liver Disease: No (06/20/2016 14:05:Koffi Reed RN) Med Hx Varicosities/Phlebitis: No (06/20/2016 14:05:Koffi Reed RN) Med Hx Thyroid Dysfunction: No (06/20/2016 14:05:Koffi Reed RN) Med Hx Trauma/Violence: No (06/20/2016 14:05:Koffi Reed RN) Med Hx Blood Transfusion: No (06/20/2016 14:05:Koffi Reed RN) Med Hx Pulmonary (Asthma,TB): Yes (06/20/2016 14:05:Koffi Reed RN) Med Hx Breast: No (06/20/2016 14:05:Koffi Reed RN) Med Hx FUNERAL HOME ASSOCIATE Surgery: No (06/20/2016 14:05:Koffi Reed RN) Med Hx Hospitalization/Surgery: Yes (06/20/2016 14:05:Koffi Reed RN) Med Hx Anesthetic Complications: No (06/20/2016 14:05:Koffi Reed RN) Med Hx Abnormal Pap Smear: No (06/20/2016 14:05:Koffi Reed RN) Other Medical Diseases: No (06/20/2016 14:05:Koffi Reed RN) Med Hx Significant Family Hx: No (06/20/2016 14:05:Koffi Reed RN) Details of Med/Surg Hx: Obesity; Patent ductus, surgery at age 5, Childhood asthma (06/20/2016 14:05:Koffi Reed RN) INFECTIOUS HISTORY Inf Hx Gonorrhea: No (06/20/2016 14:05:Koffi Reed RN) Inf Hx Chlamydia: No (06/20/2016 14:05:Koffi Reed RN) Inf Hx Syphilis: No (06/20/2016 14:05:Koffi Reed RN) Inf Hx HIV/AIDS: No (06/20/2016 14:05:Koffi Reed RN) Inf Hx Human Papilloma Virus: No (06/20/2016 14:05:Koffi Reed RN) Inf Hx Pt/Partner Genital Herpes: No (06/20/2016 14:05:Koffi Reed RN) Inf Hx Tuberculosis/Exposure: No (06/20/2016 14:05:Koffi Reed RN) Inf Hx Hepatitis B,C: No (06/20/2016 14:05:Koffi Reed RN) Inf Hx Rash or Viral Illness: No (06/20/2016 14:05:Koffi Reed RN) Details of Infectious Hx: Hx GC/Chlamydia, JUAN LUIS Neg (06/20/2016 14:05:Koffi Reed RN) GENETIC HISTORY Gen Hx Age >=35 at BRYCE: No (06/20/2016 14:05:Koffi Reed RN) Gen Hx Thalassemia: No (06/20/2016 14:05:Koffi Reed RN) Gen Hx Congenital Heart Defect: No (06/20/2016 14:05:Koffi Reed RN) Gen Hx Neural Tube Defect: No (06/20/2016 14:05:Koffi Reed RN) Gen Hx Down's Syndrome: No (06/20/2016 14:05:Koffi Reed RN) Gen Hx Bora-Sachs: No (06/20/2016 14:05:Koffi Reed RN) Gen Hx Renée: No (06/20/2016 14:05:Koffi Reed RN) Gen Hx Familial Dysautonomia: No (06/20/2016 14:05:Koffi Reed RN) Gen Hx Sickle Cell Disease/Trait: No (06/20/2016 14:05:Koffi Reed RN) Gen Hx Hemophilia/Blood Disorder: No (06/20/2016 14:05:Koffi Reed RN) Gen Hx Muscular Dystrophy: No (06/20/2016 14:05:Koffi Reed RN) Gen Hx Cystic Fibrosis: No (06/20/2016 14:05:Koffi Reed RN) Gen Hx Huntingtons Chorea: No (06/20/2016 14:05:Koffi Reed RN) Gen Hx Mental Retardation/Autism: No (06/20/2016 14:05:Koffi Reed RN) Gen Hx Tested for Fragile X: No (06/20/2016 14:05:Koffi Reed RN) Gen Hx Other Inher/Chromosomal: No (06/20/2016 14:05:Koffi Reed RN) Gen Hx Maternal Metabolic DO: No (06/20/2016 14:05:Koffi Reed RN) Gen Hx Pt Father or FOB Defect: No (06/20/2016 14:05:Koffi Reed RN) Gen Hx Other Genetic History: No (06/20/2016 14:05:Koffi Reed RN) Gen Hx Drugs/Meds since LMP: Yes (06/20/2016 14:05:Koffi Reed RN) Gen Hx Medications: Vitamin (06/20/2016 14:05:Koffi Reed RN)
--- NOTE | 2016-06-22 18:15 | L&D Care Plan ---
LD CARE PLANS Datetime Report Generated by CPKim: 06/22/2016 18:15 Datetime: 06/21/2016 12:21 State: Actual (TRENT Harrington) Related To: Labor and Delivery Process; Treatment and Procedures (TRENT Harrington) Goal(s): Patients Pain will be Assessed and Managed; Patient will Verbalize Adequate Relief of Pain or the Ability to [place] with Current Pain (TRENT Harrington) Interventions: Assess Pain Severity on Scale of 0 (None) to 5 (Severe); Assess Type, Location and Intensity of Pain Each Time Client Reports Discomfort and Notify Provider if Unusal Pain Develops; Encourage Proper Breathing and Relaxation Techniques; Offer Alternatives Such as Repositioning, Calm Environment, Massages, Diversional Activities, Ice Pack, Splinting, and Ambulation; Administer Analgesics as Ordered; Assist with Epidural Placement as Appropriate; Evaluate Therapeutic Effectiveness of Medication and Treatments (TRENT Harrington) Outcome: Patient will Report Absence or Relief of Pain Consistent with Established Pain Goal (TRENT Harrington) Status: Ongoing (TRENT Harrington) Outcome: Patient will have a Decrease in Signs and Symptoms of Discomfort (Huma Camp, RNC) Status: Ongoing (Huma Tavarez, RNC) Outcome: Pain will be Controlled During Procedures (Huma Tavarez, RNC) Status: Ongoing (Huma Tavarez, RNC) State: Risk For (Huma Tavarez, RNC) Related To: Labor and Delivery Process; Perceived or Actual Threat to ; Fear of Unknown; Situational Crisis; Significant Life Event (Huma Tavarez, RNC) Goal(s): Patient will have Decreased Anxiety and be able to Function at Acceptable Levels (Huma Tavarez, RNC) Interventions: Assess Verbal and Nonverbal Behavioral Indicators of Anxiety; Assist Patient to Identify and Verbalize Symptoms of Anxiety; Identify and Demonstrate Techniques to Control Anxiety; Assist Patient with Coping Mechanisms to Manage Anxiety; Provide Theraputic Touch for the Patient; Explain to Patient, Using a Calm Reassuring Approach and Nonmedical Terms, All Activities, Procedures, and Concerns; Instruct Patient and Family about Post Discharge Care, Limitations, Symptoms to Report and Resources Available (Huma Tavarez, RNC) Outcome: Patient will Identify, Verbalize and Demonstrate Techniques to Control Anxiety (Huma Tavarez, RN) Status: Ongoing (Huma Tavarez, RNC) Outcome: Patient's Posture, Facial Expressions, Gestures and Activity Level will Reflect Decreased Anxiety (Huma Tavarez, RNC) Status: Ongoing (Huma Tavarez, RN) Outcome: Patient will Verbalize a Sense of Control and/or Acceptance of the Situation (Huma Tavarez, RNC) Status: Ongoing (Huma Tavarez, RN) Outcome: Patient will Identify and Utilize Support Person (Huma Tavarez, RN) Status: Ongoing (Huma Tavarez, RN) State: Risk For (Huma Tavarez, RNC) Related To: Labor and Delivery Process; Treatment and Procedures; Impending Alterations in Family Dynamics; Feeding and Care (Huma Tavarez, RNC) Goal(s): Patient will Accurately Verbalize Understanding of Plan of Care and Treatment; Patient and Family will Accurately Verbalize Understanding of the Disease Process (Huma Tavarez, RNC) Interventions: Assess Motivation and Willingness of Patient/Family to Learn; Assess Preferred Learning Mode: One to One Instruction, Reading, Videos, Group Discussion or Demonstration; Assess Barriers to Learning: Pain, Emotional State, Language Barrier, Cognitive Impairment, Visual or Hearing Deficits; Assess Patient and Family Knowledge of Disease Process, Medications and Treatment; Discuss Therapy and/or Treatment Options, Describe Rationale Behind Management, Therapy and Treatment Recommendations; Instruct Patient and Family on Signs and Symptoms to Report; Instruct Patient and Family on Medication Effects and Side Effects; Provide Appropriate and Timely Education Using Multiple Techniques; Provide Patient and Family with Support Group Information and Resources; Give Clear and Thorough Explanations and Demonstrations (Huma Tavarez, RNC) Outcome: Patient and Family will Verbalize Understanding of Condition, Treatment and Signs and Symptoms to Report (Huma Tavarez, RNC) Status: Ongoing (Huma Tavarez, RNC) Outcome: Patient will Identify Perceived Learning Needs and Express Motivation to Learn (Huma Tavarez, RNC) Status: Ongoing (Huma Tavarez, RNC) Outcome: Patient will Verbalize Understanding of Desired Content, and/or Performs Desired Skill Prior to Discharge (Huma Tavarez, RNC) Status: Ongoing (Huma Tavarez, RNC) State: Risk For (Huma Tavarez, RNC) Related To: Prolonged Labor or Induction; Premature/Prolonged Rupture of Membranes; Invasive Procedures (Huma Tavarez, RNC) Goal(s): The Patient will be Free of Infection, Vital Signs Stable and Lab Work within Normal Parameters (Huma Tavarez, RNC) Interventions: Instruct and Reinforce Proper Handwashing, Hygiene, and Care Techniques to Patient and Family; Monitor Vital Signs; Monitor Patient for the Following Signs of Infection: Fever, Abdominal Tenderness, Unusual Discharge; Monitor Aminiotic Fluid, Urine and Lochia for Color and Odor; Observe Wounds, Incisions and Invasive Line Sites for Redness, Drainage and Edema; Assess IV Sites per Hospital Policy; Monitor Lab and Test Results and Notify Provider of Abnormal Findings; Assess Nutritional Status and Promote Good Nutrition (Huma Tavarez, RNC) Outcome: Patient will Remain Free of Infection (Huma Tavarez, RNC) Status: Ongoing (Huma Tavarez, RN) Outcome: Infection will be Recognized Early to Allow for Prompt Treatment (Huma Tavarez, RNC) Status: Ongoing (Huma Tavarez, RNC) Outcome: Patient will have Vital Signs Within Expected Range (Huma Tavarez, RNC) Status: Ongoing (Huma Tavarez, RN) State: Risk For (Huma Tavarez, RN) Related To: Prolonged Labor or Induction; Hemorrhage; Anesthesia (Huma Tavarez, RNC) Goal(s): Patient will Achieve and Maintain a Balanced Fluid Volume Status; Hemodynamically Stable (Huma Tavarez, RNC) Interventions: Monitor Vital Signs; Auscultate Breath Sounds; Monitor Patient for Skin Turgor, Mucous Membranes, Dry Skin, Weakness, Headaches and Confusion; Provide Oral Fluids as Ordered; Initiate and Maintain Intravenous Fluids as Ordered; Monitor Intake and Output as Indicated Per Patient Status; Accurately Measure Blood Loss; Monitor Lab and Test Results as Obtained and Notify Provider of Abnormal Findings; Monitor Patient's Weight (Huma Tavarez, RNC) Outcome: Patient will have Clear Lung Sounds (Huma Tavarez, RNC) Status: Ongoing (Huma Tavarez, RNC) Outcome: Patient will have Vital Signs within Expected Range (Huma Tavarez, RNC) Status: Ongoing (Huma Tavarez, RNC) Outcome: Urine Output will be within Expected Range (Huma Tavarez, RNC) Status: Ongoing (Huma Tavarez, RNC) Outcome: Patient will have Minimal Generalized or Upper Extremity Edema (Huma Tavarez, RNC) Status: Ongoing (Huma Tavarez, RN) State: Risk For (Huma Tavarez, RNC) Related To: Labor and Delivery Process; Anesthesia; Risk to Status; Uteroplacental Perfusion; Decreased Mobility; Hemorrhage, Placenta Previa and or Placental Abruption (Huma Tavarez, RNC) Goal(s): Patient will Remain Free from Injury (Huma Tavarez, RN) Interventions: Monitoring as per Hospital Protocol; Assess Neurological Status; Perform Risk Assessment of Patients with Induction and ; Perform Fall Risk Assessment and Prevention per Hospital Protocol; Perform DVT Risk Assessment and Prophylaxis per Hospital Protocol; Ensure that Oxygen, Suction, and Resuscitation Medications and Equipment are Readily Available; Confirm Patient ID Prior to Procedure(s) and Medication Administration per Hospital Policy (Huma Tavarez, RN) Outcome: Successful Fall Risk Prevention (Huma Tavarez, RNC) Status: Ongoing (Huma Tavarez, RNC) Outcome: Patient will Deliver without Adverse Sequela (Huma Tavarez, RNC) Status: Ongoing (Huma Tavarez, RNC) Outcome: Patient's Neurological Status will Remain Stable (Huma Tavarez, RNC) Status: Ongoing (Huma Tavarez, RNC) State: Risk For (Huma Tavarez, RNC) Related To: Vaginal Delivery; Invasive Procedures (Huma Tavarez, RN) Goal(s): Patient will Maintain Optimal Skin Integrity, Free of Breakdown, Injury or Infection (Huma Tavarez, RNC) Interventions: Complete Screening for Pressure Ulcer Risk and Initiate Protocol per Hospital Policy; Monitor Site of Skin Impairment for Color Changes, Redness, Swelling, Warmth, Pain or Other Signs of Infection; Encourage and Assist with Position Changes; Monitor Patient's Mobility Status; Provide Adequate Nutrition and Fluids; Teach Patient Appropriate Hygienic Care; Teach Patient/Family Skin Care Management (Huma Tavarez, MARLENEC) Outcome: Patient will not have Evidence of Injury Such as Skin Breakdown, Scrapes, Cuts, or Bruising (Huma Tavarez, RNC) Status: Ongoing (Huma Tavarez, RNC) Outcome: Patient will Report Any Altered Sensation or Pain at Site of Skin Impairment (Huma Tavarez, RNC) Status: Ongoing (Huma Tavarez, RNC) Outcome: Patients Incisions and Wounds will be without Signs or Symptoms of Infection (Huma Tavarez, RNC) Status: Ongoing (Huma Tavarez, RNC) Outcome: Patient will Demonstrate Understanding of Plan to Heal Skin and Prevent Reinjury and Verbalize Risk Factors (Huma Tavarez, MARLENEC) Status: Ongoing (Huma Tavarez, RNC) State: Risk For (Huma Tavarez, TRENT) Related To: Apprehension Related to Care (Huma Tavarez, MARLENEC) Goal(s): Parents will Demonstrate Progressive Parenting Behaviors (Huma Tavarez, TRENT) Interventions: Assess for Adequacy of Support Systems; Observe and Encourage Patient/Family Infant Attachment and Bonding Activities and Provide Feedback; Assess Patient/Family Understanding of 's Condition and Provide Accurate Information About Condition, Treatment and Prognosis; Assess for Patient/Family Behaviors that May Indicate Lack of Attachment; Provide a Safe Non-judgmental Environment for Patient/Family to Discuss Concerns; Promote Patient/Family Cohesiveness by Encouraging Discussion and Problem Solving; Director Of Institutional Giving Referral as Indicated (Huma Tavarez, RNC) Outcome: Patient/Family will Discuss Their Fears and the Possibility of Difficulties with Parenting (Huma Tavarez, RNC) Status: Ongoing (Huma Tavarez, RNC) Outcome: Patient/Family will Exhibit Appropriate Bonding Behaviors with Infant (Huma Tavarez, RNC) Status: Ongoing (Huma Tavarez, RNC) Outcome: Patient/Family will Verbalize Positive Feelings and Demonstrate Affection and Caring Toward (Huma Tavarez, RNC) Status: Ongoing (Huma Tavarez, RNC) State: Risk For (Huma Tavarez, RNC) Related To: ; (TRENT Harrington) Goal(s): Patient will have an Intake of Nutrients Sufficient to Meet Metabolic Needs (TRENT Harrington) Interventions: Nutritional Screening and Assessment per Hospital Policy; Consult [place] Manager for Further Assessment and Recommendations Regarding Food Preferences and Nutritional Support; Allow Patient to Plan and Order Diet when Possible; Monitor Laboratory Values That Indicate Nutritional Well-being; Consult Used Car Lot Attendant for Nutritional Support Regarding Requirements; Document Actual Weight Initially and Weekly (Do Not Estimate); Encourage Patient Participation in Maintaining a Food Log as Indicated; Educate Patient on the Importance of Maintaining an Adequate Caloric Intake (TRENT Harrington) Outcome: Patient will Receive Adequate Calories and Fluid Volume to Meet Metabolic Needs (RTENT Harrington) Status: Ongoing (TRENT Harrington) Outcome: Patient will Select Foods or Meals that Support Adequate Nutrition (TRENT Harrington) Status: Ongoing (TRENT Harrington)
--- NOTE | 2016-06-23 06:01 | L&D Current Admission ---
Current Admit Datetime Report Generated by CPN: 06/23/2016 06:00 ADMISSION INFORMATION Current Admit Date/Time: 06/21/2016 12:19 (06/21/2016 11:50:Radha Rivera RN) Reason for Admission: Rupture of Membranes (06/21/2016 11:50:Radha Rivera RN) Chief Complaint: Contractions (06/21/2016 11:50:Cheri Antonio RN) Medications During : Vitamin (06/21/2016 11:50:Radha Rivera RN) EGA per Dates: 40.3 (06/21/2016 11:50:QS system process) Method of Arrival: Wheelchair (06/21/2016 11:50:Radha Rivera RN) Admitted From: Home (06/21/2016 11:50:Radha Rivera RN) Reason for Induction: Not Applicable (06/21/2016 11:50:Radha Rivera RN) Records Available: Yes (06/21/2016 11:50:Radha Rivera RN) General Admission Information: Reviewed (06/21/2016 11:50:Radha Rivera RN) BELONGINGS/ADVANCED DIRECTIVES Valuables/Personal Effects: Cell Phone; Eyeglasses; Jewelry (06/21/2016 11:50:Cheri Antonio RN) Other Belongings: see signed belongings consent (06/21/2016 11:50:Radha Rivera RN) Disposition of Belongings: Kept with Patient (06/21/2016 11:50:Radha Rivera RN) Advance Direct for Healthcare: No, and Wants No Information (06/21/2016 11:50:Radha Rivera RN) Durable Power of Third Loader: No (06/21/2016 11:50:Radha Rivera RN) Living Will: No (06/21/2016 11:50:Radha Rivera RN) Organ Donor: Yes (06/21/2016 11:50:Radha Rivera RN) Pt Rights Information Given: Yes (06/21/2016 11:50:Radha Rivera RN) Pt Understands Pt Rights: Yes (06/21/2016 11:50:Radha Rivera RN) LEARNING ASSESSMENT Knowledge Level: Understands L_D Process; Understands Care Activities; Had Pre-Hospital Education; Understands Diagnosis (06/21/2016 11:50:Radha Rivera RN) Barriers to Learning: None (06/21/2016 11:50:Radha Rivera RN) Learning Readiness: Motivated (06/21/2016 11:50:Radha Rivera RN) Learns Best By: 1 to 1 Instruction (06/21/2016 11:50:Radha Rivera RN) Learning Needs: Labor and Delivery Process; Pain Management; Symptoms to Report; Treatment Plan; Medication; Diagnosis; Nutrition; Equipment; Infant Care; Community Resources (06/21/2016 11:50:Radha Rivera RN) DOMESTIC VIOLANCE SCREENING Dom Viol Threatened/Hurt: No (06/21/2016 11:50:Cheri Antonio RN) Hx of Abuse/Neglect past 2yrs: No (06/21/2016 11:50:Cheri Antonio RN) Feel Unsafe Going Home: No (06/21/2016 11:50:Cheri Antonio RN) Addt'l Observ Indicating Abuse: No (06/21/2016 11:50:Cheri Antonio RN) Reason Unable to Complete Screen: N/A, Screen Completed (06/21/2016 11:50:Cheri Antonio RN) Considered Personal Harm/Suicide: No (06/21/2016 11:50:Cheri Antonio RN) NUTRITIONAL/FUNCTIONAL SCREENING Problem with Appetite >5 Days: No (06/21/2016 11:50:Radha Rivera RN) Chew/Swallow Difficulties: No (06/21/2016 11:50:Radha Rivera RN) Inappropriate Wt Gain/Loss: No (06/21/2016 11:50:Radha Rivera RN) Presence Skin Breakdown/Ulcer: No (06/21/2016 11:50:Radha Rivera RN) Special Diet: No (06/21/2016 11:50:Radha Rivera RN) Pt Requests Tight Rope Walker Visit: No (06/21/2016 11:50:Radha Rivera RN) Hx of Any of the Following?: N/A (06/21/2016 11:50:Radha Rivera RN) New Diagnosis of: N/A (06/21/2016 11:50:Radha Rivera RN) Requires Assist w/Ambulation: No (06/21/2016 11:50:Radha Rivera RN) Uses Assist Device to Ambulate: No (06/21/2016 11:50:Radha Rivera RN) Pt Requires Help w/ADL's: No (06/21/2016 11:50:Radha Rivera RN)
--- NOTE | 2016-06-23 06:01 | L&D General Admission ---
General Admit Datetime Report Generated by CPN: 06/23/2016 06:00 INFORMATION Patient Age: 21 (06/13/2016 08:57:QS system process) EDC: 06/18/2016 00:00 (06/20/2016 14:05:Koffi Reed RN) LMP: 09/12/2015 00:00 (06/20/2016 14:05:Koffi Reed RN) : 1 (06/20/2016 14:05:Koffi Reed RN) Para: 0 (06/20/2016 14:05:Koffi Reed RN) Term: 0 (06/20/2016 14:05:Maureen Watson RN) : 0 (06/20/2016 14:05:Maureen Watson RN) Spontaneous Abortions: 0 (06/20/2016 14:05:Maureen Watson RN) Induced Abortions: 0 (06/20/2016 14:05:Maureen Watson RN) Livin (06/20/2016 14:05:Maureen Watson RN) Cesareans: 0 (06/20/2016 14:05:Maureen Watson RN) VBACs: 0 (06/20/2016 14:05:Maureen Watson RN) Ectopic: 0 (06/20/2016 14:05:Maureen Watson RN) Multiple Births: 0 (06/20/2016 14:05:Maureen Watson RN) Baby, Number in Womb: 1 (06/20/2016 14:05:Koffi Reed RN) CARE Primary Casino Runner: [facility] Department (06/20/2016 14:05:Koffi Reed RN) Casino Runner Other: [facility] (06/20/2016 14:05:Koffi Reed RN) Adequate Care: Yes (06/20/2016 14:05:Maureen Watson RN) Prepregnancy Weight (lb): 155 (06/20/2016 14:05:Koffi Reed RN) Prepregnancy Weight (kg): 70.5 (06/20/2016 14:05:QS system process) Height (in): 62 (06/22/2016 10:20:QS system process) ALLERGIES Medication Allergy: No (06/20/2016 14:05:Koffi Reed RN) Medication Allergies: No Known Allergies (06/21/2016) (06/21/2016 03:14:QS system process) Latex Allergy: No Latex Allergies (06/20/2016 14:05:Koffi Reed RN) Food Allergies: none (06/20/2016 14:05:Maureen Watson RN) Environmental Allergies: none (06/20/2016 14:05:Maureen Watson RN) COMMUNICATION Primary Language: Slovenian (06/20/2016 14:05:Koffi Reed RN) Medical Tx Preferred Language: Slovenian (06/20/2016 14:05:Maureen Watson RN) Communication Barrier(s): None (06/20/2016 14:05:Koffi Reed RN) DEMOGRAPHICS Address: [address] [place] [id number] (06/13/2016 08:57:QS system process) Zipcode: [address] (06/13/2016 08:57:QS system process) Home (06/21/2016 03:05:QS system process) SSN: [id number] (06/13/2016 08:57:QS system process) Next of Kin Name: VANESSA JAQUEZ (06/13/2016 08:57:QS system process) Next of Kin (06/13/2016 08:57:QS system process) Next of Kin Relationship: MO (06/13/2016 08:57:QS system process) Date of : 1995 (06/13/2016 08:57:QS system process) Marital Status: Single (06/13/2016 08:57:QS system process) Sex: Female (06/13/2016 08:57:QS system process) Occupation: None (06/20/2016 14:05:Koffi Reed RN) Race: (06/13/2016 08:57:QS system process) Ethnicity: Non- or (06/13/2016 08:57:QS system process) Uatsdin: Other (06/13/2016 08:57:QS system process) Education: 12 (06/20/2016 14:05:Koffi Reed RN) FOB Involved: Yes (06/20/2016 14:05:Koffi Reed RN) Father of Baby Name: Krystle Peoples (06/20/2016 14:05:Koffi Reed RN) Person Auth to release pt PHI: VANESSA JAQUEZ (06/20/2016 14:05:Koffi Reed RN) DRUG AND ALCOHOL USE Alcohol: No (06/20/2016 14:05:Koffi Reed RN) Cigarettes: Never Smoker. [id number] (06/20/2016 14:05:Koffi Reed, MARLENE) Marijuana: No (06/20/2016 14:05:Koffi Reed, RN) Cocaine: No (06/20/2016 14:05:Koffi Reed RN) Other Illicit Drugs: No (06/20/2016 14:05:Koffi Reed, RN) VACCINE HISTORY Influenza Vaccine: No (06/20/2016 14:05:Koffi Reed RN) Pneumococcal Vaccine: No (06/20/2016 14:05:Koffi Reed RN) Tetanus Vaccine: Uncertain (06/20/2016 14:05:Koffi Reed RN) Tdap Vaccine: No (06/20/2016 14:05:Koffi Reed RN) Hepatitis B Vaccine: Yes (06/20/2016 14:05:Koffi Reed RN) Lube Worker: [facility] (06/20/2016 14:05:Koffi Reed RN) Feeding Preference: Both (06/20/2016 14:05:Koffi Reed RN) Benefit of Breast Feed Discussed: Yes (06/20/2016 14:05:Koffi Reed RN) Circumcision: Yes (06/20/2016 14:05:Koffi Reed RN) Classes Attended: No (06/20/2016 14:05:Koffi Reed RN) Tubal Ligation: No (06/20/2016 14:05:Koffi Reed RN) Tubal Authorization Signed: N/A (06/20/2016 14:05:Koffi Reed RN) Consent: N/A (06/20/2016 14:05:Koffi Reed RN) Consent Signed: N/A (06/20/2016 14:05:Koffi Reed RN) Pain Management Plans: Epidural (06/20/2016 14:05:Koffi Reed RN) Plans for Labor and Delivery: None (06/20/2016 14:05:Koffi Reed RN) Support Person: Krystle Peoples (06/20/2016 14:05:Koffi Reed RN) Support Person Relationship: Significant Other (06/20/2016 14:05:Koffi Reed RN) Cultural/Spritual Practice: No (06/20/2016 14:05:Koffi Reed RN) Spir/Cult Dietary Needs: No (06/20/2016 14:05:Koffi Reed RN) LIVING SITUATION/DISCHARGE PLAN Living Arrangements: House (06/20/2016 14:05:Koffi Reed RN) Adequate Access to:: Electric; Heat; Refrigeration; Plumbing/Running water; Phone; Transportation (06/20/2016 14:05:Koffi Reed RN) WIC Program: Yes (06/20/2016 14:05:Koffi Reed RN) Discharge Fisheries Technical Officer Person: Vanessa Jaquez (06/20/2016 14:05:Koffi Reed RN) Person to Help after Discharge: Krystle Jett (06/20/2016 14:05:Koffi Reed RN) Currently Using Commun Resources: Yes (06/20/2016 14:05:Koffi Reed RN) Specify Current Resource Used: Medicaid (06/20/2016 14:05:Koffi Reed RN) Outside Agency/Quilt Sewer: No (06/20/2016 14:05:Koffi Reed RN) Car Seat for Discharge: Yes (06/20/2016 14:05:Koffi Reed RN) Adoption Requested: No (06/20/2016 14:05:Koffi Reed RN) Pt Contact w/infant Post : N/A (06/20/2016 14:05:Koffi Reed RN) LABS Blood Type: O Positive (06/20/2016 14:05:Koffi Reed RN) Antibody Screen: negtive (06/20/2016 14:05:Bina Grubbs RN) Hemoglobin: 9.5 L (06/22/2016 07:27:QS system process) Hematocrit: 29.1 L (06/22/2016 07:27:QS system process) MCV: 86 (06/22/2016 07:27:QS system process) Group Beta Strep: Negative (06/20/2016 14:05:Koffi Reed RN) Gonorrhea: Negative (06/20/2016 14:05:Koffi Reed RN) Chlamydia: Negative (06/20/2016 14:05:Koffi Reed RN) RPR/VDRL: Nonreactive (06/20/2016 14:05:Koffi Reed RN) HIV Exposure Test: Negative (06/20/2016 14:05:Koffi Reed RN) Hepatitis B: Negative (06/20/2016 14:05:Bina Grubbs RN) Rubella: Immune (06/20/2016 14:05:Bina Grubbs RN) OB/PREVIOUS HISTORY LMP: 09/12/2015 00:00 (06/20/2016 14:05:Koffi Reed RN) Previous Procedures: None (06/20/2016 14:05:Koffi Reed RN) Current Procedures: Ultrasound (06/20/2016 14:05:Koffi Reed RN) History of Previous : No (06/20/2016 14:05:Koffi Reed RN) History of Gestational Diabetes: No (06/20/2016 14:05:Koffi Reed RN) History of PIH: No (06/20/2016 14:05:Koffi Reed RN) History of Incompetent Cervix: No (06/20/2016 14:05:Koffi Reed RN) History of Placenta Previa/Abrup: No (06/20/2016 14:05:Koffi Reed RN) History of Macrosomia: No (06/20/2016 14:05:Koffi Reed RN) History of IUGR: No (06/20/2016 14:05:Koffi Reed RN) History of Hemorrhage: No (06/20/2016 14:05:Koffi Reed RN) History of Loss/Stillborn: No (06/20/2016 14:05:Koffi Reed RN) History of : No (06/20/2016 14:05:Koffi Reed RN) History of D (Rh) Sensitization: No (06/20/2016 14:05:Koffi Reed RN) History Recurrent Loss/Stillborn: No (06/20/2016 14:05:Koffi Reed RN) History Depression/PP Depression: No (06/20/2016 14:05:Koffi Reed RN) History of Uterine Anomaly/BECCA: No (06/20/2016 14:05:Koffi Reed RN) History of Infertility: No (06/20/2016 14:05:Koffi Reed RN) History of ART Treatment: No (06/20/2016 14:05:Koffi Reed RN) History of BECCA: No (06/20/2016 14:05:Koffi Reed RN) Comments Obstetrical History: G1 Current (06/20/2016 14:05:Koffi Reed RN) MEDICAL HISTORY Med Hx Diabetes: No (06/20/2016 14:05:Koffi Reed RN) Med Hx Hypertension: No (06/20/2016 14:05:Koffi Reed RN) Med Hx Heart Disease: No (06/20/2016 14:05:Koffi Reed RN) Med Hx Autoimmune Disorder: No (06/20/2016 14:05:Koffi Reed RN) Med Hx Kidney Disease/UTI: No (06/20/2016 14:05:Koffi Reed RN) Med Hx Neurologic/Epilepsy: No (06/20/2016 14:05:Koffi Reed RN) Med Hx Psychiatric Disorders: No (06/20/2016 14:05:Koffi Reed RN) Med Hx Hepatitis/Liver Disease: No (06/20/2016 14:05:Koffi Reed RN) Med Hx Varicosities/Phlebitis: No (06/20/2016 14:05:Koffi Reed RN) Med Hx Thyroid Dysfunction: No (06/20/2016 14:05:Koffi Reed RN) Med Hx Trauma/Violence: No (06/20/2016 14:05:Koffi Reed RN) Med Hx Blood Transfusion: No (06/20/2016 14:05:Koffi Reed RN) Med Hx Pulmonary (Asthma,TB): Yes (06/20/2016 14:05:Koffi Reed RN) Med Hx Breast: No (06/20/2016 14:05:Koffi Reed RN) Med Hx VP [employer] Surgery: No (06/20/2016 14:05:Koffi Reed RN) Med Hx Hospitalization/Surgery: Yes (06/20/2016 14:05:Koffi Reed RN) Med Hx Anesthetic Complications: No (06/20/2016 14:05:Koffi Reed RN) Med Hx Abnormal Pap Smear: No (06/20/2016 14:05:Koffi Reed RN) Other Medical Diseases: No (06/20/2016 14:05:Koffi Reed RN) Med Hx Significant Family Hx: No (06/20/2016 14:05:Koffi Reed RN) Details of Med/Surg Hx: Obesity; Patent ductus, surgery at age 5, Childhood asthma (06/20/2016 14:05:Koffi Reed RN) INFECTIOUS HISTORY Inf Hx Gonorrhea: No (06/20/2016 14:05:Koffi Reed RN) Inf Hx Chlamydia: No (06/20/2016 14:05:Koffi Reed RN) Inf Hx Syphilis: No (06/20/2016 14:05:Koffi Reed RN) Inf Hx HIV/AIDS: No (06/20/2016 14:05:Koffi Reed RN) Inf Hx Human Papilloma Virus: No (06/20/2016 14:05:Koffi Reed RN) Inf Hx Pt/Partner Genital Herpes: No (06/20/2016 14:05:Koffi Reed RN) Inf Hx Tuberculosis/Exposure: No (06/20/2016 14:05:Koffi Reed RN) Inf Hx Hepatitis B,C: No (06/20/2016 14:05:Koffi Reed RN) Inf Hx Rash or Viral Illness: No (06/20/2016 14:05:Koffi Reed RN) Details of Infectious Hx: Hx GC/Chlamydia, JUAN LUIS Neg (06/20/2016 14:05:Koffi Reed RN) GENETIC HISTORY Gen Hx Age >=35 at BRYCE: No (06/20/2016 14:05:Koffi Reed RN) Gen Hx Thalassemia: No (06/20/2016 14:05:Koffi Reed RN) Gen Hx Congenital Heart Defect: No (06/20/2016 14:05:Koffi Reed RN) Gen Hx Neural Tube Defect: No (06/20/2016 14:05:Koffi Reed RN) Gen Hx Down's Syndrome: No (06/20/2016 14:05:Koffi Reed RN) Gen Hx Bora-Sachs: No (06/20/2016 14:05:Koffi Reed RN) Gen Hx Renée: No (06/20/2016 14:05:Koffi Reed RN) Gen Hx Familial Dysautonomia: No (06/20/2016 14:05:Koffi Reed RN) Gen Hx Sickle Cell Disease/Trait: No (06/20/2016 14:05:Koffi Reed RN) Gen Hx Hemophilia/Blood Disorder: No (06/20/2016 14:05:Koffi Reed RN) Gen Hx Muscular Dystrophy: No (06/20/2016 14:05:Koffi Reed RN) Gen Hx Cystic Fibrosis: No (06/20/2016 14:05:Koffi Reed RN) Gen Hx Huntingtons Chorea: No (06/20/2016 14:05:Koffi Reed RN) Gen Hx Mental Retardation/Autism: No (06/20/2016 14:05:Koffi Reed RN) Gen Hx Tested for Fragile X: No (06/20/2016 14:05:Koffi Reed RN) Gen Hx Other Inher/Chromosomal: No (06/20/2016 14:05:Koffi Reed RN) Gen Hx Maternal Metabolic DO: No (06/20/2016 14:05:Koffi Reed RN) Gen Hx Pt Father or FOB Defect: No (06/20/2016 14:05:Koffi Reed RN) Gen Hx Other Genetic History: No (06/20/2016 14:05:Koffi Reed RN) Gen Hx Drugs/Meds since LMP: Yes (06/20/2016 14:05:Koffi Reed RN) Gen Hx Medications: Vitamin (06/20/2016 14:05:Koffi Reed RN)
[2016-06-23] MEDS: IBUPROFEN 800 MG TABLET PO SCH (07:06)
[2016-06-23 08:36] VITALS: BP 107/76
[2016-06-23] MEDS: DOCUSATE SODIUM 100 MG CAPSULE PO SCH (09:42)
[2016-06-23] MEDS: SENNOSIDES/DOCUSATE 8.6-50 MG 1 EACH TABLET PO SCH (09:42)
[2016-06-23] MEDS: PRENATAL VITAMIN W-O CA NO5/FE FUMARATE/FA CAPSULE PO SCH (09:42)
[2016-06-23] MEDS: FERROUS SULFATE 325 MG TABLET PO SCH (09:42)
--- NOTE | 2016-06-23 10:54 | PDOC PROGRESS REPORT ---
Subjective-OB Subjective: Post Delivery Day: 21 year old. Denies any needs at this time Doing well, no c/o, ambulating, diet taken well, scant bleeding Physical Exam (OB) Vital Signs: Temp Pulse Resp BP Pulse Ox 98.0 F 74 20 107/76 100 06/23/16 08:17 06/23/16 08:17 06/23/16 08:17 06/23/16 08:17 06/23/16 08:17 Intake & Output 06/22/16 06/23/16 06/24/16 06:59 06:59 07:59 Weight 84.2 kg - PIH/Pre-Eclampsia DTR's: 2 + Clonus: Negative Headache: Absent Epigastric Pain: No Visual Changes: No - Lochia Lochia Amount: Small 10-25 ml Lochia Color: Rubra/Red - Abdomen Description: Soft, Round Hernia Present: Yes Fundal Description: Firm, Midline Fundal Height: u/u - u/2 Objective-Diagnostic Laboratory: 06/22/16 07:27 Assessment and Plan(PN) - Assessment and Plan (1) Anemia Qualifiers: Anemia type: iron deficiency Is this a current diagnosis for this admission?: Yes (2) Vaginal delivery Is this a current diagnosis for this admission?: Yes - Time Spent with Patient Medications reviewed and adjusted accordingly: Yes - Disposition Anticipated Discharge: Home Within: Other - home today
--- NOTE | 2016-06-23 10:57 | PDOC DISCHARGE SUMMARY ---
Final Diagnosis Discharge Date: 06/23/16 - Final Diagnosis (1) Anemia Is this a current diagnosis for this admission?: Yes (2) Vaginal delivery Is this a current diagnosis for this admission?: Yes Discharge Data - Discharge Medication Home Medications: Vit/Iron Fumarate/FA [ Tablet] 1 tab PO DAILY 06/20/16 Gestational Age: 40.3 Reason(s) for Admission: Onset of Labor, PROM Procedures: Ultrasound Intrapartum Procedure(s): Spontaneous Vaginal Delivery - Data Baby 1 Male at 1 minute: 8 at 5 minutes: 9 Weight: 3.43 kg Home with Mother: Yes Complications: No - Diagnosis Test Laboratory: Temp Pulse Resp BP Pulse Ox 98.0 F 74 20 107/76 100 06/23/16 08:17 06/23/16 08:17 06/23/16 08:17 06/23/16 08:17 06/23/16 08:17 06/21/16 06/21/16 06/22/16 11:40 14:11 07:27 RBC 3.70 L 3.39 L Hgb 10.3 L 9.5 L Hct 31.6 L 29.1 L Urine Opiates Screen NEGATIVE - Discharge information/Instructions Discharge Activity: Activity As Tolerated, No Lifting Over 10 Pounds, No Lifting /Push/Pulling Discharge Diet: As Tolerated, Regular Disposition: HOME, SELF-CARE Follow up with: [facility] in: 4, Weeks
== END 2016-06-23 12:21 | disposition home or self-care (01) | DRG 775 ==
LOC: LC 11:26 → LR 12:20 → 2N 23:20
PROVIDERS: ADMIT Obstetrics & Gynecology; ATTEND Obstetrics & Gynecology
PROC: 10E0XZZ Delivery of Products of Conception, External Approach (ICD-10-PCS; principal; 2016-06-21)
PROC: 10H07YZ Insertion of Other Device into Products of Conception, Via Natural or Artificial Opening (ICD-10-PCS; 2016-06-21)
PROC: 4A1H7CZ Monitoring of Products of Conception, Cardiac Rate, Via Natural or Artificial Opening (ICD-10-PCS; 2016-06-21)
PROC: 10H073Z Insertion of Monitoring Electrode into Products of Conception, Via Natural or Artificial Opening (ICD-10-PCS; 2016-06-21)
DX: O77.0 Labor and delivery complicated by meconium in amniotic fluid (principal); O76 Abnormality in fetal heart rate and rhythm complicating labor and delivery; O99.214 Obesity complicating childbirth; E66.9 Obesity, unspecified; O99.52 Diseases of the respiratory system complicating childbirth; J45.909 Unspecified asthma, uncomplicated; O99.02 Anemia complicating childbirth; D50.9 Iron deficiency anemia, unspecified; Z68.34 Body mass index [BMI] 34.0-34.9, adult; Z3A.40 40 weeks gestation of pregnancy; Z37.0 Single live birth
CPT/HCPCS: 36415; 80307; 81005; 84112; 85025; 85027; 86592; 86850; 86900; 86901; 90715; 94760; J2590; J3490

== ENCOUNTER 2016-08-10 17:49 | Emergency (ER) | payer MEDICAID ==
--- NOTE | 2016-08-10 21:40 | ER Document Report ---
ED GI/ - General Chief Complaint: Vaginal Bleeding Stated Complaint: VAGINAL BLEEDING Time seen by provider: 21:37 Notes: Patient is a 21-year-old female that comes emergency department for chief complaint of heavy vaginal bleeding for the past 10 days. She states that she is bleeding so heavily she is changing her pad about twice an hour and this is consistent. She denies dizziness, syncope, fever, flank pain, dysuria. Patient had a spontaneous vaginal delivery on June 21 with no complications and no significant bleeding until now. Patient did get a Depo injection 9 days ago. She is not breast feeding. She denies any medications or any PMH otherwise. TRAVEL OUTSIDE OF THE [place] IN LAST 30 DAYS: No - Related Data Allergies/Adverse Reactions: No Known Allergies Allergy (Verified 08/10/16 17:56) Past Medical History - General Information source: Patient - Social History Smoking Status: Never Smoker Frequency of alcohol use: None Drug Abuse: None Lives with: Family Family History: Reviewed & Not Pertinent Patient has suicidal ideation: No Patient has homicidal ideation: No - Medical History Medical History: Negative Renal/ Medical History: Denies: Hx Peritoneal Dialysis Surgical Hx: Negative - Immunizations Immunizations up to date: Yes Hx Diphtheria, Pertussis, Tetanus Vaccination: Yes Review of Systems - Review of Systems Constitutional: No symptoms reported EENT: No symptoms reported Cardiovascular: No symptoms reported Respiratory: No symptoms reported Gastrointestinal: See HPI Genitourinary: See HPI Female Genitourinary: See HPI Musculoskeletal: No symptoms reported Skin: No symptoms reported Hematologic/Lymphatic: No symptoms reported Neurological/Psychological: No symptoms reported Physical Exam - Vital signs Vitals: Temp Pulse Resp BP Pulse Ox 89.8 F L 101 H 18 146/84 H 99 08/10/16 17:57 08/10/16 17:57 08/10/16 17:57 08/10/16 17:57 08/10/16 17:57 Interpretation: Normal - General General appearance: Appears well, Alert - HEENT Head: Normocephalic, Atraumatic Eyes: Normal Pupils: PERRL - Respiratory Respiratory status: No respiratory distress Chest status: Nontender Breath sounds: Normal Chest palpation: Normal - Cardiovascular Rhythm: Regular Heart sounds: Normal auscultation Murmur: No - Abdominal Inspection: Normal Distension: No distension Bowel sounds: Normal Tenderness: Tender - Very mild generalized lower abdominal tenderness in both right and lower quadrants Organomegaly: No organomegaly - Genitourinary External exam: Normal Vaginal bleeding: Mild - There is a tiny amount of blood pooled in the back of the vaginal vault, visualization of the cervix shows no current bleeding - Back Back: Normal, Nontender - Extremities General upper extremity: Normal inspection, Nontender, Normal color, Normal ROM , Normal temperature General lower extremity: Normal inspection, Nontender, Normal color, Normal ROM , Normal temperature, Normal weight bearing. No: Juwan's sign - Neurological Neuro grossly intact: Yes Cognition: Normal Orientation: AAOx4 [place] Coma Scale Eye Opening: Spontaneous Bhar[place] Coma Scale Verbal: Oriented Bhar[place] Coma Scale Motor: Obeys Commands Bharathi Coma Scale Total: 15 Speech: Normal Motor strength normal: LUE, RUE, LLE, RLE Sensory: Normal - Psychological Associated symptoms: Normal affect, Normal mood - Skin Skin Temperature: Warm Skin Moisture: Dry Skin Color: Normal Course - Re-evaluation Re-evalutation: CBC unremarkable, ultrasound with no abnormalities, urinalysis with some blood but I suspect this was contamination, pelvic exam is very unremarkable with no current bleeding noted, wet mount and gonorrhea/chlamydia unremarkable/ negative. No evidence of acute abnormality. Vital signs rechecked because of strange initial ones and these are completely normal. Soft abdomen, well- appearing patient. Suspect this is hormonal, especially since patient just got Depo. Recommended that this may subside with time, recommended patient follow up with [facility] for additional management, discussed return precautions, patient states understanding and agreement. - Vital Signs Vital signs: Temp Pulse Resp BP Pulse Ox 98.1 F 91 20 113/77 100 08/10/16 23:36 08/10/16 23:36 08/10/16 23:36 08/10/16 23:36 08/10/16 23:36 - Laboratory Result Diagrams: 08/10/16 22:49 Laboratory results interpreted by me: 08/10/16 08/10/16 22:49 22:49 WBC 11.1 H RDW 16.5 H Urine Protein 30 H Urine Blood LARGE H Discharge - Discharge Clinical Impression: Menorrhagia Qualifiers: Menorrahagia type: with regular cycle Qualified Code(s): N92.0 - Excessive and frequent menstruation with regular cycle Condition: Stable Disposition: HOME, SELF-CARE Additional Instructions: Ultrasound, lab work, and evaluation shows no abnormalities. This is likely related to the depo. Follow up with OBGYN for additional management. Return to the ED for any concerning symptoms. Referrals: BRANDY YEBOAH MD [Primary Care Provider] - Follow up as needed
[2016-08-10 23:15] LABS: ABSOLUTE EOSINOPHILS # (AUTO) 0.1 10^3/uL (0.0-0.6); ABSOLUTE LYMPHOCYTES (AUTO) 3.5 10^3/uL (0.5-4.7); ABSOLUTE MONOCYTES (AUTO) 0.6 10^3/uL (0.1-1.4); ABSOLUTE NEUT (AUTO) 6.8 10^3/uL (1.7-8.2); BASOPHILS % (AUTO) 0.4 % (0-2); EOSINOPHILS % (AUTO) 1.1 % (0-6); HEMATOCRIT 38.6 % (36.0-47.0); HEMOGLOBIN 12.6 g/dL (12.0-15.5); HGB HCT DIFFERENCE -0.8; MEAN CORPUSCULAR HEMOGLOBIN 27.9 pg (27.0-33.4); MEAN CORPUSCULAR HGB CONC 32.6 g/dL (32.0-36.0); MEAN CORPUSCULAR VOLUME 86 fl (80-97); MONOCYTES % (AUTO) 5.1 % (3-13); RED BLOOD COUNT 4.51 10^6/uL (3.72-5.28); RED CELL DISTRIBUTION WIDTH 16.5 % (11.5-14.0); SEGMENTED NEUTROPHILS % (AUTO) 61.4 % (42-78); WHITE BLOOD COUNT 11.1 10^3/uL (4.0-10.5)
[2016-08-10 23:19] LABS: APPEARANCE,URINE SLIGHTLY-CLOUDY; BILIRUBIN,URINE NEGATIVE (NEGATIVE); GLUCOSE, URINE NEGATIVE (NEGATIVE); KETONES,URINE NEGATIVE (NEGATIVE); LEUKOCYTE ESTERASE,URINE NEGATIVE (NEGATIVE); NITRITE,URINE NEGATIVE (NEGATIVE); PROTEIN,URINE 30 mg/dL (NEGATIVE); URINE SPECIFIC GRAVITY 1.015; UROBILINOGEN,URINE NEGATIVE mg/dL (<2.0)
[2016-08-10 23:39] VITALS: BP 113/77
[2016-08-11 00:33] LABS: CHLAM PCR NOT DETECTED (NOT DETECT)
== END 2016-08-10 23:30 | disposition home or self-care (01) ==
LOC: ER 17:49
DX: N92.0 Excessive and frequent menstruation with regular cycle (principal); R10.813 Right lower quadrant abdominal tenderness; R10.814 Left lower quadrant abdominal tenderness; Z79.3 Long term (current) use of hormonal contraceptives
CPT/HCPCS: 36415; 76830; 81001; 81025; 85025; 87210; 87491; 87591; 93976; 99284

== ENCOUNTER 2016-11-19 23:05 | Emergency (ER) | payer MEDICAID ==
[2016-11-19] MEDS ORDERED: OXYCODONE-ACETAMINOPHEN 5-325 MG TABLET PO ONE (23:50)
[2016-11-19] MEDS ORDERED: ONDANSETRON 4 MG TAB.RAPDIS PO ONE (23:50)
--- NOTE | 2016-11-19 23:51 | ER Document Report ---
ED GI/ - General Chief Complaint: Flank Pain Stated Complaint: FLANK PAIN Time Seen by Provider: 11/19/16 23:42 Notes: Patient is a 21-year-old female who comes emergency department for chief complaint of left-sided abdominal pain, started earlier today, pain is constant. She denies vomiting. She had a normal bowel movement earlier today. She denies fever or chills. She denies flank pain. She states it feels better when she is lying down, worse when she is up or moving around. She denies any change with eating. Patient denies any daily medications. Patient had cardiac surgery as a child, has been cleared from cardiology now. TRAVEL OUTSIDE OF THE [place] IN LAST 30 DAYS: No - Related Data Allergies/Adverse Reactions: No Known Allergies Allergy (Verified 08/10/16 17:56) Past Medical History - General Information source: Patient - Social History Smoking Status: Never Smoker Frequency of alcohol use: None Drug Abuse: None Lives with: Family Family History: Reviewed & Not Pertinent Patient has suicidal ideation: No Patient has homicidal ideation: No - Medical History Medical History: Negative Renal/ Medical History: Denies: Hx Peritoneal Dialysis Surgical Hx: Negative - Immunizations Immunizations up to date: Yes Hx Diphtheria, Pertussis, Tetanus Vaccination: Yes Review of Systems - Review of Systems Constitutional: No symptoms reported EENT: No symptoms reported Cardiovascular: No symptoms reported Respiratory: No symptoms reported Gastrointestinal: See HPI Genitourinary: No symptoms reported Female Genitourinary: No symptoms reported Musculoskeletal: No symptoms reported Skin: No symptoms reported Hematologic/Lymphatic: No symptoms reported Neurological/Psychological: No symptoms reported Physical Exam - Vital signs Vitals: Temp Pulse Resp BP Pulse Ox 98.5 F 112 H 17 136/70 H 99 11/19/16 23:06 11/19/16 23:06 11/19/16 23:06 11/19/16 23:06 11/19/16 23:06 Interpretation: Normal - General General appearance: Appears well, Alert In distress: None - HEENT Head: Normocephalic, Atraumatic Eyes: Normal Conjunctiva: Normal Extraocular movements intact: Yes Eyelashes: Normal Pupils: PERRL Nasal: Normal Mouth/Lips: Normal Mucous membranes: Normal Pharynx: Normal Neck: Normal - Respiratory Respiratory status: No respiratory distress Chest status: Nontender Breath sounds: Normal. No: Decreased air movement, Wheezing Chest palpation: Normal - Cardiovascular Rhythm: Regular, Tachycardia Heart sounds: Normal auscultation, S1 appreciated, S2 appreciated Murmur: No - Abdominal Inspection: Normal Distension: No distension Bowel sounds: Normal Tenderness: Tender - tender on palpation of the left upper quadrant and mid left abdomen on examination. Mild wincing. No rigidity. Remaining abdomen is benign. Questionable mild swelling of the spleen, no significant organomegaly - Back Back: Normal, Nontender. No: Tender, CVA tenderness - Extremities General upper extremity: Normal inspection, Nontender, Normal color, Normal ROM , Normal temperature General lower extremity: Normal inspection, Nontender, Normal color, Normal ROM , Normal temperature, Normal weight bearing. No: Juwan's sign - Neurological Neuro grossly intact: Yes Cognition: Normal Orientation: AAOx4 [place] Coma Scale Eye Opening: Spontaneous Bharathi Coma Scale Verbal: Oriented [place] Coma Scale Motor: Obeys Commands Bharathi Coma Scale Total: 15 Speech: Normal Motor strength normal: LUE, RUE, LLE, RLE Sensory: Normal - Psychological Associated symptoms: Normal affect, Normal mood - Skin Skin Temperature: Warm Skin Moisture: Dry Skin Color: Normal Course - Re-evaluation Re-evalutation: Examination suggestive of mild splenomegaly and LUQ area is tender. Patient is mildly tachycardic. However she is not hypotensive. She is still well appearing. When asked patient admits she recently had a very sore throat and thought was strep but it did resolve (started 1 week ago, stopped having sore throat about 2 days ago). U/S pending. U/S with no acute abnormalities (no organomegaly or free fluid). Laboratory workup was unremarkable including no evidence of pancreatitis or other upper abdominal abnormality. Patient will be treated with Zantac and stool softener as a result. Discussed results, discussed follow-up, discussed return precautions for any worsening symptoms of any developing intra-abdominal process. Patient states understanding and agreement. - Vital Signs Vital signs: Temp Pulse Resp BP Pulse Ox 98.1 F 94 18 123/70 97 11/20/16 03:14 11/20/16 03:14 11/20/16 03:14 11/20/16 03:14 11/20/16 03:14 - Laboratory Result Diagrams: 11/20/16 01:05 11/20/16 01:05 Laboratory results interpreted by me: 11/20/16 11/20/16 01:05 01:05 WBC 11.7 H Hgb 11.3 L Hct 34.6 L Chloride 110 H Discharge - Discharge Clinical Impression: Abdominal pain Qualifiers: Abdominal location: left upper quadrant Qualified Code(s): R10.12 - Left upper quadrant pain Condition: Stable Disposition: HOME, SELF-CARE Additional Instructions: The spleen is normal in appearance on ultrasound. Your workup does not show any concerning abnormalities. Your symptoms are most likely from a bowel source, I recommend taking the Zantac as prescribed, avoid smoking, alcohol, NSAIDs, spicy food, high levels of caffeine. Take the colace to move your bowels. Follow-up with primary care. Return to emergency department for any concerning or worsening symptoms including vomiting, fever, in the right black stools, returned or worsening pain, or any other concerning symptoms. Prescriptions: Docusate Sodium [Colace 100 mg Capsule] 100 mg PO BID PRN #30 capsule PRN Reason: Ranitidine HCl [Zantac 150 mg Tablet] 150 mg PO BID #30 tablet Forms: Return to Work Referrals: BRANDY YEBOAH MD [Primary Care Provider] - Follow up as needed
[2016-11-20 00:44] LABS: APPEARANCE,URINE SLIGHTLY-CLOUDY; BILIRUBIN,URINE NEGATIVE (NEGATIVE); GLUCOSE, URINE NEGATIVE (NEGATIVE); KETONES,URINE NEGATIVE (NEGATIVE); LEUKOCYTE ESTERASE,URINE NEGATIVE (NEGATIVE); NITRITE,URINE NEGATIVE (NEGATIVE); PROTEIN,URINE NEGATIVE (NEGATIVE); URINE SPECIFIC GRAVITY 1.024; UROBILINOGEN,URINE NEGATIVE mg/dL (<2.0)
[2016-11-20 01:19] LABS: ABSOLUTE EOSINOPHILS # (AUTO) 0.3 10^3/uL (0.0-0.6); ABSOLUTE LYMPHOCYTES (AUTO) 2.4 10^3/uL (0.5-4.7); ABSOLUTE MONOCYTES (AUTO) 0.8 10^3/uL (0.1-1.4); ABSOLUTE NEUT (AUTO) 8.1 10^3/uL (1.7-8.2); BASOPHILS % (AUTO) 0.4 % (0-2); EOSINOPHILS % (AUTO) 2.7 % (0-6); HEMATOCRIT 34.6 % (36.0-47.0); HEMOGLOBIN 11.3 g/dL (12.0-15.5); HGB HCT DIFFERENCE -0.7; LYMPHOCYTES % (AUTO) 20.4 % (13-45); MEAN CORPUSCULAR HEMOGLOBIN 27.2 pg (27.0-33.4); MEAN CORPUSCULAR HGB CONC 32.7 g/dL (32.0-36.0); MEAN CORPUSCULAR VOLUME 83 fl (80-97); RED BLOOD COUNT 4.17 10^6/uL (3.72-5.28); RED CELL DISTRIBUTION WIDTH 13.9 % (11.5-14.0); SEGMENTED NEUTROPHILS % (AUTO) 69.5 % (42-78); WHITE BLOOD COUNT 11.7 10^3/uL (4.0-10.5)
[2016-11-20 01:39] LABS: ALANINE AMINOTRANSFERASE 26 U/L (9-52); ALBUMIN 3.5 g/dL (3.5-5.0); ALKALINE PHOSPHATASE 123 U/L (38-126); ASPARTATE AMINO TRANSFERASE 18 U/L (14-36); BILIRUBIN,DIRECT 0.2 mg/dL (0.0-0.4); BILIRUBIN,TOTAL 0.2 mg/dL (0.2-1.3); BLOOD UREA NITROGEN 11 mg/dL (7-20); CALCIUM 9.4 mg/dL (8.4-10.2); CARBON DIOXIDE 22 mmol/L (22-30); CREATININE RESULT 0.54 mg/dL (0.52-1.25); GLUCOSE 84 mg/dL (75-110); LIPASE 182.6 U/L (23-300); POTASSIUM 4.1 mmol/L (3.6-5.0); SODIUM 140.1 mmol/L (137-145); TOTAL PROTEIN 6.6 g/dL (6.3-8.2)
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
[2016-11-20 02:09] LABS: ANION GAP 8 (5-19); CHLORIDE 110 mmol/L (98-107)
[2016-11-20 03:14] VITALS: BP 123/70
== END 2016-11-20 03:16 | disposition home or self-care (01) ==
LOC: ER 23:05
DX: R10.12 Left upper quadrant pain (principal)
CPT/HCPCS: 99284; 36415; 83690; 85025; 81025; 80053; 81001; 76700; S0119

== ENCOUNTER 2017-02-01 15:56 | Emergency (ER) | payer OTHER, MEDICAID ==
[2017-02-01] MEDS ORDERED: HYDROCODONE/ACETAMINOPHEN 5-325 MG TABLET PO ONE (16:11)
[2017-02-01] MEDS ORDERED: DIPH/PERTUSS(ACELL)/TETANUS VAC/PF 0.5 ML SYR (>=10YO) IM ONE (16:20)
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
[2017-02-01 17:43] VITALS: BP 123/74
== END 2017-02-01 17:44 | disposition home or self-care (01) ==
LOC: ER 15:56
DX: S40.022A Contusion of left upper arm, initial encounter (principal); S80.12XA Contusion of left lower leg, initial encounter; S20.312A Abrasion of left front wall of thorax, initial encounter; V49.40XA Driver injured in collision with unspecified motor vehicles in traffic accident, initial encounter; M79.602 Pain in left arm; M79.605 Pain in left leg; M54.2 Cervicalgia
CPT/HCPCS: 71020; 90471; 90715; 99283

== ENCOUNTER 2017-10-23 20:30 | Emergency (ER) | payer MEDICAID, OTHER ==
--- NOTE | 2017-10-23 21:50 | ER Document Report ---
ED Extremity Problem, Upper - General Chief Complaint: Wrist Pain Stated Complaint: LEFT WRIST PAIN Time Seen by Provider: 10/23/17 21:03 Mode of Arrival: Ambulatory Information source: Patient Notes: 22-year-old female presented ED for constant pain in her left wrist for the last 2 weeks. She denies any injuries or taking any kind of medications or doing anything for the pain and for the last 2 weeks. She has full range of motion to her wrist no tenderness to palpation. Patient is alert and oriented respirations regular unlabored speaking in full sentences and walks with a even steady gait. TRAVEL OUTSIDE OF THE [place] IN LAST 30 DAYS: No - HPI Patient complains to provider of: Pain, Left, Wrist Onset: Other - 2 weeks Recent injury: No Quality of pain: Sharp, Throbbing Pain Level: 3 Associated symptoms: None Exacerbated by: Movement, Exertion Relieved by: Nothing Similar symptoms previously: Yes Recently seen / treated by doctor: No - Related Data Allergies/Adverse Reactions: No Known Allergies Allergy (Verified 02/01/17 16:06) Past Medical History - General Information source: Patient - Social History Smoking Status: Current Every Day Smoker Cigarette use (# per day): Yes - 1 to 2 black and mild a day Chew tobacco use (# tins/day): No Smoking Education Provided: Yes - 4 minutes Frequency of alcohol use: Social Drug Abuse: None Occupation: [employer] Lives with: Family Family History: Reviewed & Not Pertinent Patient has suicidal ideation: No Patient has homicidal ideation: No - Past Medical History Cardiac Medical History: Reports: None Pulmonary Medical History: Reports: None EENT Medical History: Reports: None Neurological Medical History: Reports: None Endocrine Medical History: Reports: None Renal/ Medical History: Reports: None Malignancy Medical History: Reports: None GI Medical History: Reports: None Musculoskeltal Medical History: Reports None Skin Medical History: Reports None Psychiatric Medical History: Reports: None Traumatic Medical History: Reports: None Infectious Medical History: Reports: None Surgical Hx: Negative Past Surgical History: Reports: None - Immunizations Immunizations up to date: Yes Hx Diphtheria, Pertussis, Tetanus Vaccination: Yes Review of Systems - Review of Systems Constitutional: No symptoms reported EENT: No symptoms reported Cardiovascular: No symptoms reported Respiratory: No symptoms reported Gastrointestinal: No symptoms reported Genitourinary: No symptoms reported Female Genitourinary: No symptoms reported Musculoskeletal: Other - Left wrist pain no bruising no swelling no tenderness to palpation Skin: No symptoms reported Hematologic/Lymphatic: No symptoms reported Neurological/Psychological: No symptoms reported -: Yes All other systems reviewed and negative Physical Exam - Vital signs Vitals: Temp Pulse Resp BP Pulse Ox 99.3 F 106 H 16 133/78 H 99 10/23/17 20:41 10/23/17 20:41 10/23/17 20:41 10/23/17 20:41 10/23/17 20:41 Interpretation: Normal - General General appearance: Appears well, Alert - HEENT Head: Normocephalic, Atraumatic Eyes: Normal Pupils: PERRL - Respiratory Respiratory status: No respiratory distress Chest status: Nontender Breath sounds: Normal Chest palpation: Normal - Cardiovascular Rhythm: Regular Heart sounds: Normal auscultation Murmur: No - Abdominal Inspection: Normal Distension: No distension Bowel sounds: Normal Tenderness: Nontender Organomegaly: No organomegaly - Back Back: Normal, Nontender - Extremities General upper extremity: Normal inspection, Nontender, Normal color, Normal temperature General lower extremity: Normal inspection, Nontender, Normal color, Normal ROM , Normal temperature, Normal weight bearing. No: Juwan's sign Wrist: Limited ROM - Patient states it is very painful when she uses her arm to make pizzas or to do task at home but just moving her wrist through range of motion she has no difficulty no pain. No tenderness to palpation.. No: Tender , Abrasion, Axial load of thumb pain, Deformity, Dislocation, Ecchymosis, Instability, Laceration, Navicular tenderness - Neurological Neuro grossly intact: Yes Cognition: Normal Orientation: AAOx4 Bharathi Coma Scale Eye Opening: Spontaneous Bharathi Coma Scale Verbal: Oriented Bharathi Coma Scale Motor: Obeys Commands [place] Coma Scale Total: 15 Speech: Normal Motor strength normal: LUE, RUE, LLE, RLE Sensory: Normal - Psychological Associated symptoms: Normal affect, Normal mood - Skin Skin Temperature: Warm Skin Moisture: Dry Skin Color: Normal Course - Re-evaluation Re-evalutation: 10/23/17 21:50 Cock-up splint was a little applied to the left wrist. Patient was instructed on use L exercises elevation and ice for her wrist. She was also instructed on use of ibuprofen. Patient to follow-up with orthopedics. She has not injured her wrist there is no redness swelling or bruising the patient does complain of pain. Patient does not complain of tenderness when palpated or range of motion she says is just when she uses her arms. - Vital Signs Vital signs: Temp Pulse Resp BP Pulse Ox 98.9 F 97 20 131/79 H 100 10/23/17 22:00 10/23/17 22:00 10/23/17 22:00 10/23/17 22:00 10/23/17 22:00 Procedures - Immobilization Left Wrist Time completed: 21:50 Immobilizer type: Cock-up Performed by: PCT Post-Proc Neuro Vasc Exam: Normal Alignment checked and good: Yes Discharge - Discharge Clinical Impression: Wrist pain, left Condition: Stable Disposition: HOME, SELF-CARE Instructions: Forearm Exercise Program ([facility]) Additional Instructions: You were seen today for pain in the left wrist with no new injury. I have given you instructions concerning carpal tunnel but I am not sure this is what is going on with your wrist this is a possibility that she will need to evaluate with the product marketing specialist Carpal Tunnel Syndrome Your examination suggests carpal tunnel syndrome. This syndrome is due to pressure on a nerve in the wrist. The pressure may be caused by an old injury, hard work using the wrist, work involving repeated motions of the hand, wrist positions that keep pressure on the joint, or arthritis in the wrist. Typical symptoms are tingling, numbness, and pain in the palm, thumb, index and middle fingers, and one side of the ring finger. Often a splint, ice packs, and antiinflammatory medication make the symptoms go away. If the physician feels that your problem is chronic, you will be referred to a specialist for further care. If symptoms do not go away, carpal tunnel syndrome may require surgery. You should call the doctor if pain increases, if you develop difficulty using the thumb or fingers, or if major swelling occurs. I have treated you with a cock-up splint to help with your pain. Please use this when you are not trying to actually make a pizza this will help to let you have use of your fingers while resting your wrist. Elevate and ice your wrist for pain ICE & ELEVATION: Apply ice packs frequently against the painful area. Many different schedules are recommended, such as "20 minutes on, 20 minutes off" or "one hour ice, two hours rest." If you need to work, you may need to go longer between ice treatments. You should plan to have the area ice packed AT LEAST one- fourth of the time. The ice should be applied over the wrap, tape, or splint, or over a layer of cloth -- not directly against the skin. Some ice bags have a built-in cloth and can be put directly on the skin. Your injured part should be elevated as much as possible over the next 48 hours. Try to keep the injury above the level of the heart. Avoid use of the injured area. Elevation and rest will decrease the swelling. USE OF [id number] IBUPROFEN: Ibuprofen (Advil, Nuprin, Medipren, Motrin IB) is a medication for fever and pain control. In addition, it has anti- inflammatory effects which may be beneficial, especially in the treatment of injuries. It's best to take ibuprofen with food. Persons with ulcer disease or allergy to aspirin should notify their physician of this before taking ibuprofen. Ibuprofen can be given every four to six hours, for a total of four doses daily. Age Pain or fever dose Antiinflammatory dose 6-8 yr 200 mg (1 tab) 200 mg (1 tab) 9-11 yr 200 mg (1 tab) 200-400 mg (1-2 tab) 11-14 yr 200-400 mg (1-2 tab) 400 mg (2 tab) 15-adult 400 mg (2 tab) 600 mg (3 tab) FOLLOW-UP CARE: If you have been referred to a physician for follow-up care, call the physician s office for an appointment as you were instructed or within the next two days. If you experience worsening or a significant change in your symptoms, notify the physician immediately or return to the Emergency Department at any time for re-evaluation. Forms: Elevated Blood Pressure, Smoking Cessation Education, Return to Work Referrals: BRANDY YEBOAH MD [Primary Care Provider] - Follow up as needed ROSALBA REES MD [ACTIVE STAFF] - Follow up as needed
[2017-10-23 22:02] VITALS: BP 131/79
== END 2017-10-23 22:09 | disposition home or self-care (01) ==
LOC: ER 20:30
DX: M25.532 Pain in left wrist (principal); F17.210 Nicotine dependence, cigarettes, uncomplicated
CPT/HCPCS: 99406; 99283; L3908

== ENCOUNTER 2018-01-17 15:26 | Emergency (ER) | payer SELFPAY ==
[2018-01-17 15:43] VITALS: BP 122/73
--- NOTE | 2018-01-17 16:14 | ER Document Report ---
ED ENT - General Chief Complaint: Sore Throat Stated Complaint: THROAT PAIN Time Seen by Provider: 01/17/18 16:00 Mode of Arrival: Ambulatory Information source: Patient Notes: 22-year-old female presented to ED for complaint of sore throat times 2 days. She states she has pus pockets on her tonsils is bleeding 2-3 hours ago. She states they no longer bleeding at this time. Patient states when the pus pockets popped a couple hours ago she had some bleeding. She states it was very foul-smelling. Denies any fevers headaches or abdominal pain. Patient does have runny nose congestion. Patient is alert and oriented respirations regular and unlabored speaking in full sentences. TRAVEL OUTSIDE OF THE [place] IN LAST 30 DAYS: No - HPI Patient complains to provider of: Throat problem Onset: Other - 2 days Onset/Duration: Gradual Quality of pain: Sharp Severity: Moderate Pain Level: 2 Context: Recent Illness Location of pain: Sinus, Throat Associated symptoms: Runny nose, Sinus drainage, Sore throat. denies: Fever, Headache Similar symptoms previously: Yes Recently seen / treated by doctor: No - Related Data Allergies/Adverse Reactions: No Known Allergies Allergy (Verified 01/17/18 15:29) Past Medical History - General Information source: Patient - Social History Smoking Status: Current Every Day Smoker Cigarette use (# per day): Yes - Black and mild a day Chew tobacco use (# tins/day): No Smoking Education Provided: Yes - 4 minutes Frequency of alcohol use: Social Drug Abuse: None Occupation: [employer] Lives with: Family Family History: Reviewed & Not Pertinent Patient has suicidal ideation: No Patient has homicidal ideation: No - Past Medical History Cardiac Medical History: Reports: None Pulmonary Medical History: Reports: None EENT Medical History: Reports: None Neurological Medical History: Reports: None Endocrine Medical History: Reports: None Renal/ Medical History: Reports: None Malignancy Medical History: Reports: None GI Medical History: Reports: None Musculoskeletal Medical History: Reports None Skin Medical History: Reports None Psychiatric Medical History: Reports: None Traumatic Medical History: Reports: None Infectious Medical History: Reports: None Surgical Hx: Negative Past Surgical History: Reports: None - Immunizations Immunizations up to date: Yes Hx Diphtheria, Pertussis, Tetanus Vaccination: Yes Review of Systems - Review of Systems Constitutional: No symptoms reported EENT: No symptoms reported, Nose discharge, Sinus discharge, Throat pain Cardiovascular: No symptoms reported Respiratory: No symptoms reported Gastrointestinal: No symptoms reported Genitourinary: No symptoms reported Female Genitourinary: No symptoms reported Musculoskeletal: No symptoms reported Skin: No symptoms reported Hematologic/Lymphatic: No symptoms reported Neurological/Psychological: No symptoms reported -: Yes All other systems reviewed and negative Physical Exam - Vital signs Vitals: Temp Pulse Resp BP Pulse Ox 98.9 F 87 16 122/73 99 01/17/18 15:41 01/17/18 15:41 01/17/18 15:41 01/17/18 15:41 01/17/18 15:41 Interpretation: Normal - General General appearance: Appears well, Alert - HEENT Head: Normocephalic, Atraumatic Eyes: Normal Pupils: PERRL Ears: Normal External canal: Normal Tympanic membrane: Normal Sinus: Normal Nasal: Swelling, Clear rhinorrhea Mouth/Lips: Normal Mucous membranes: Normal Pharynx: Post nasal drainage Neck: Normal - Respiratory Respiratory status: No respiratory distress Chest status: Nontender Breath sounds: Normal Chest palpation: Normal - Cardiovascular Rhythm: Regular Heart sounds: Normal auscultation Murmur: No - Abdominal Inspection: Normal Distension: No distension Bowel sounds: Normal Tenderness: Nontender Organomegaly: No organomegaly - Back Back: Normal, Nontender - Extremities General upper extremity: Normal inspection, Nontender, Normal color, Normal ROM , Normal temperature General lower extremity: Normal inspection, Nontender, Normal color, Normal ROM , Normal temperature, Normal weight bearing. No: Juwan's sign - Neurological Neuro grossly intact: Yes Cognition: Normal Orientation: AAOx4 [place] Coma Scale Eye Opening: Spontaneous [place] Coma Scale Verbal: Oriented [place] Coma Scale Motor: Obeys Commands [place] Coma Scale Total: 15 Speech: Normal Motor strength normal: LUE, RUE, LLE, RLE Sensory: Normal - Psychological Associated symptoms: Normal affect, Normal mood - Skin Skin Temperature: Warm Skin Moisture: Dry Skin Color: Normal Course - Re-evaluation Re-evalutation: 01/17/18 16:47 Strep test negative. Patient assessment consistent with upper respiratory infection with a viral pharyngitis and tonsil stones. Patient was treated with Toradol and Decadron IM. Patient discharged home. Culture was started and patient will be called if the culture grows anything out. Patient discharged home. - Vital Signs Vital signs: Temp Pulse Resp BP Pulse Ox 98.9 F 87 16 122/73 99 01/17/18 15:41 01/17/18 15:41 01/17/18 15:41 01/17/18 15:41 01/17/18 15:41 Discharge - Discharge Clinical Impression: Viral sore throat URI (upper respiratory infection) Qualifiers: URI type: unspecified URI Qualified Code(s): J06.9 - Acute upper respiratory infection, unspecified Condition: Stable Disposition: HOME, SELF-CARE Additional Instructions: UPPER RESPIRATORY ILLNESS: You have a viral infection of the respiratory passages -- a "cold." This common infection causes nasal congestion, drainage, and often sore throat and cough. It is highly contagious. The disease usually lasts about 10 to 14 days. There is no "cure" for the viral infection -- it must run its course. If there is a complication, such as bacterial infection in the nose, sinuses, middle ear, or bronchial tubes, antibiotics may be required. The antibiotics won't affect the virus. Drink plenty of fluids. A humidifier may help. An expectorant medication or decongestant may make you more comfortable. Use acetaminophen or ibuprofen for fever or aches. See the doctor if fever persists over two days, if there is any significant worsening of your symptoms, or if you simply fail to improve as expected. SORE THROAT: Sore throats may be caused by viruses, bacteria, or fungi. Most are due to a virus, and must get better on their own. Bacterial sore throats, particularly those due to "strep," need treatment with antibiotics. If an antibiotic is prescribed, be sure to take the medication for a full 10 days. Failure to take the antibiotic can result in complications such as rheumatic fever. Sometimes, an injection of antibiotics is given instead of pills or liquid. This single "shot" is equal in effectiveness to the oral medication. To relieve symptoms, take acetaminophen for pain. Sip clear liquids frequently, or eat popsicles or ice chips. Anesthetic sprays or lozenges may help. Make sure the air in the room is not too dry. Avoid using decongestants or antihistamines. Call the doctor if there is no improvement in two days, or if you have difficulty breathing, increasing throat pain, high fever, rash, or frequent vomiting. DECONGESTANT MEDICATION: A decongestant medicine has been suggested. Often this medicine is combined in the same tablet with an antihistamine or expectorant. This type of medicine is helpful in treating a bad cold or sinus condition, as well as in treatment of the nasal congestion of hay fever. It is not of much benefit for lung infections. Decongestant medicines are related to stimulants. They can cause an increase in blood pressure and heart rate. Persons with heart disease and high blood pressure should not take decongestants without discussing this with the physician. If you develop palpitations, chest pain, headache, or tremors, stop the medicine and consult your physician. COUGH-SUPPRESSANT & EXPECTORANT MEDICATION: You are to use a cough medication as needed for relief of symptoms. This medicine is a combination of an expectorant (to make the mucous thinner and more easily "coughed up") and a cough suppressant (to reduce the frequency of coughing). The cough-suppressant medicine is related to narcotics. You may experience mild nausea and sleepiness. Some patients who are very sensitive to narcotics may have stomach pain from this medicine. Taking the medicine with food reduces these side effects. Do not drive or work with machinery until you know how this medicine affects you. The expectorant should have no side effects. Iodine-containing expectorants (such as organidin) should not be taken by persons with active thyroid disease unless approved by your doctor. Call the doctor if you develop shortness of breath, hives, rash, itching, lightheadedness, or severe nausea and vomiting. STEROID MEDICATION: You have been given an injection of or oral medicine of the cortisone/ steroid class. This medication is used to control inflammation or allergy. Blair t is usually only given for a short period of time, until the acute process subsides. There are usually no side effects from short-term use of cortisone-like medications. Some persons feel an increased sense of well-being and are not sleepy at bedtime. Long-term use of cortisone medications is best avoided, unless required for a severe condition. If your condition does not remit, or relapses after the course of corticosteroid medication, you should consult your physician. Toradol Injection You have been given an injection of ketorolac tromethamine (Toradol). This is an excellent, safe drug for pain control. It also has potent antiinflammatory action. You should have significant pain relief within about one hour. Toradol is not addicting and is non-sedating. It does not interfere with driving or work. Call or return if you develop itching, hives, shortness of breath, or rash. SMOKING: If you smoke, you should stop smoking. The tar and chemicals in cigarette smoke are harmful. Smoking has been shown to cause: emphysema chronic bronchitis lung cancer mouth and throat cancer stomach and pancreas cancer premature aging defects In addition, smoking increases ear and lung infections in children of smokers. FOLLOW-UP CARE: If you have been referred to a physician for follow-up care, call the physician s office for an appointment as you were instructed or within the next two days. If you experience worsening or a significant change in your symptoms, notify the physician immediately or return to the Emergency Department at any time for re-evaluation. Forms: Smoking Cessation Education, Return to Work Referrals: BRANDY YEBOAH MD [ACTIVE STAFF] - Follow up as needed
[2018-01-17] MEDS ORDERED: DEXAMETHASONE SOD PHOS INJ 10 MG/1 ML VIAL IM ONE (16:39)
[2018-01-17] MEDS ORDERED: KETOROLAC TROMETHAMINE 60 MG/2 ML SDV IM ONE (16:39)
== END 2018-01-17 16:55 | disposition home or self-care (01) ==
LOC: ER 15:26
DX: J02.8 Acute pharyngitis due to other specified organisms (principal); B97.89 Other viral agents as the cause of diseases classified elsewhere; J35.8 Other chronic diseases of tonsils and adenoids; R09.81 Nasal congestion; J34.89 Other specified disorders of nose and nasal sinuses; R09.82 Postnasal drip; F17.210 Nicotine dependence, cigarettes, uncomplicated; Z71.6 Tobacco abuse counseling
CPT/HCPCS: 99406; 99283; 96372; 87070; 87880; J1885; J1100

== ENCOUNTER 2018-09-08 01:10 | Emergency (ER) | payer SELFPAY ==
--- NOTE | 2018-09-08 02:15 | ER Document Report ---
ED General - General Chief Complaint: Chest Pain Stated Complaint: CHEST PAIN Time Seen by Provider: 09/08/18 02:15 Notes: Patient is a pleasant 23-year-old female presents with complaint of 4 days of pain that is in the right upper chest and into the right shoulder and into just behind the shoulder. Says is worse when she moves her shoulder. Is worse when she lays flat onto her back. She denies any trauma or injuries. She denies any heart disease. She denies any chronic medical problems. She is not taking medications. Patient is not worse with taking a deep breath. No fevers. No other complaints at this time. No leg pain or leg swelling. TRAVEL OUTSIDE OF THE [place] IN LAST 30 DAYS: No - Related Data Allergies/Adverse Reactions: No Known Allergies Allergy (Verified 01/17/18 15:29) Past Medical History - Social History Smoking Status: Unknown if Ever Smoked Frequency of alcohol use: None Drug Abuse: None Family History: Reviewed & Not Pertinent Renal/ Medical History: Denies: Hx Peritoneal Dialysis - Immunizations Immunizations up to date: Yes Hx Diphtheria, Pertussis, Tetanus Vaccination: Yes Review of Systems - Review of Systems Notes: My Normal Review Basic REVIEW OF SYSTEMS: CONSTITUTIONAL : Denies fever, chills, or sweats. Denies recent illness. EENT: Denies eye, ear, throat, or mouth pain or symptoms. Denies nasal or sinus congestion. CARDIOVASCULAR: Sided chest pain. RESPIRATORY: Denies cough, cold, or chest congestion. Denies shortness of breath, difficulty breathing, or wheezing. GASTROINTESTINAL: Denies abdominal pain. Denies nausea, vomiting, or diarrhea. Denies constipation. Last BM: MUSCULOSKELETAL: Denies neck or back pain or joint pain or swelling. SKIN: Denies rash or skin lesions. NEUROLOGICAL: Denies altered mental status or loss of consciousness. Denies headache. Denies weakness or paralysis or loss of use of either side. Denies problems with gait or speech. Denies sensory or motor loss. ALL OTHER SYSTEMS REVIEWED AND NEGATIVE. Physical Exam - Vital signs Vitals: Temp Pulse Resp BP Pulse Ox 98.4 F 91 18 118/78 99 09/08/18 01:50 09/08/18 01:50 09/08/18 01:50 09/08/18 01:50 09/08/18 01:50 - Notes Notes: General Appearance: Well nourished, alert, cooperative, no acute distress, no obvious discomfort. Well-appearing. Vitals: reviewed, See vital signs table. Head: no swelling or tenderness to the head Eyes: PERRL, EOMI, Conjuctiva clear Mouth: No decreasd moisture Chest wall: Mild pain to palpation of her right upper anterior chest wall. Throat: No tonsillar inflammation, No airway obstruction, No lymphadenopathy Neck: Supple, no neck tenderness, No thyromegaly Lungs: No wheezing, No rales, No rhonci, No accessory muscle use, good air exchange bilaterally. Heart: Normal rate, Regular rythm, No murmur, no rub Abdomen: Normal BS, soft, No rigidity, No abdominal tenderness, No guarding, no rebound, no abdominal masses, no organomegaly Extremities: strength 5/5 in all extremities, good pulses in all extremities, patient does not have any pain to palpation of the right upper extremity however she does have significant pain to the chest and right upper back when I put her right shoulder thru range of motion. Skin: warm, dry, appropriate color, no rash Neuro: speech clear, oriented x 3, normal affect, responds appropriately to questions. Course - Re-evaluation Re-evalutation: 09/08/18 03:49 Patient's exam is consistent with muscle skeletal pain in her chest and back l ikely related to her shoulder. I suspect she has significant pain with any movement of her right shoulder. I do not suspect coronary disease. EKG is negative. She has no risk factors for coronary disease. I do not suspect PE. She is PERC rule negative. At this time I feel she safe to be discharged home. I strongly encouraged her return to the ER immediately if she has fevers, difficulty breathing, severe chest pain, or she feels unwell in any way. Patient agrees with plan and will be discharged home. Dictation of this chart was performed using voice recognition software; therefore, there may be some unintended grammatical errors. - Vital Signs Vital signs: Temp Pulse Resp BP Pulse Ox 98.4 F 91 18 118/78 99 09/08/18 01:50 09/08/18 01:50 09/08/18 01:50 09/08/18 01:50 09/08/18 01:50 - EKG Interpretation by Me Additional EKG results interpreted by me: 09/08/18 02:50 EKG is reviewed and interpreted by me. EKG shows sinus rhythm with a rate of [address] segment elevation or depression. No ischemic T wave inversions. VT interval, QRS duration, QT intervals are within normal range. No old EKG available for comparison. Discharge - Discharge Clinical Impression: Chest pain Qualifiers: Chest pain type: unspecified Qualified Code(s): R07.9 - Chest pain, unspecified Condition: Good Disposition: HOME, SELF-CARE Additional Instructions: Your EKG did not show any concerning findings in regards to your heart. There is no evidence of a heart attack. Your chest x-ray did not show any concerning findings either. I suspect that your pain in your chest and in your back is related to your shoulder. I suspect this because you have worsening pain with movement of the shoulder. Please do not do any heavy lifting with the right arm for the next 2 weeks. You still should put your shoulder through range of motion so you do not develop a frozen shoulder. Please take ibuprofen 400 mg every 6 hours and Tylenol 500 mg every 4 hours for pain control. Please return to the ER immediately if you have worsening pain, difficulty breathing, fevers, or feel unwell.
--- NOTE | 2018-09-08 03:48 | RADIOLOGY REPORT (SQ) ---
EXAM DESCRIPTION: XR CHEST 2 VIEWS COMPLETED DATE/TME: 09/08/2018 02:22 CLINICAL HISTORY: 23 years, Female, right sided chest pain COMPARISON: 02/01/2017 NUMBER OF VIEWS: Two TECHNIQUE: Two views of the chest LIMITATIONS: None. FINDINGS: The lungs are clear. The heart is normal in size. There is no pneumothorax or pleural effusion. The bones are unremarkable. IMPRESSION: No acute cardiopulmonary abnormality copyright 2010 [employer]- All Rights Reserved
[2018-09-08 04:47] VITALS: BP 114/67
--- NOTE | 2018-09-08 06:57 | EKG REPORT ---
SEVERITY:- NORMAL ECG - SINUS RHYTHM : Confirmed by: Yessi Toribio 08-Sep-2018 06:56:49
== END 2018-09-08 04:47 | disposition home or self-care (01) ==
LOC: ER 01:10
DX: R07.89 Other chest pain (principal); M25.511 Pain in right shoulder; M54.89 Other dorsalgia
CPT/HCPCS: 71046; 93005; 93010; 99283

== ENCOUNTER 2020-04-18 02:25 | Emergency (ER) | payer BC ==
[2020-04-18] MEDS ORDERED: ONDANSETRON 4 MG TAB.RAPDIS PO ONE (03:07)
[2020-04-18 05:32] LABS: ABSOLUTE EOSINOPHILS # (AUTO) 0.1 10^3/uL (0.0-0.6); ABSOLUTE MONOCYTES (AUTO) 0.6 10^3/uL (0.1-1.4); ABSOLUTE NEUT (AUTO) 11.9 10^3/uL (1.7-8.2); BASOPHILS % (AUTO) 0.3 % (0-2); EOSINOPHILS % (AUTO) 0.7 % (0-6); HEMATOCRIT 41.5 % (36.0-47.0); HEMOGLOBIN 13.7 g/dL (12.0-15.5); LYMPHOCYTES % (AUTO) 13.4 % (13-45); MEAN CORPUSCULAR HEMOGLOBIN 29.4 pg (27.0-33.4); MEAN CORPUSCULAR HGB CONC 33.1 g/dL (32.0-36.0); MEAN CORPUSCULAR VOLUME 89 fl (80-97); MONOCYTES % (AUTO) 4.3 % (3-13); PLATELET COUNT 300 10^3/uL (150-450); RED BLOOD COUNT 4.67 10^6/uL (3.72-5.28); RED CELL DISTRIBUTION WIDTH 13.5 % (11.5-14.0); SEGMENTED NEUTROPHILS % (AUTO) 81.3 % (42-78); TOTAL CELLS COUNTED % (AUTO) 100 %; WHITE BLOOD COUNT 14.6 10^3/uL (4.0-10.5)
[2020-04-18 05:39] LABS: APPEARANCE,URINE CLEAR; BILIRUBIN,URINE NEGATIVE (NEGATIVE); COLOR,URINE YELLOW; GLUCOSE, URINE NEGATIVE (NEGATIVE); KETONES,URINE NEGATIVE (NEGATIVE); LEUKOCYTE ESTERASE,URINE NEGATIVE (NEGATIVE); NITRITE,URINE NEGATIVE (NEGATIVE); PROTEIN,URINE 30 mg/dL (NEGATIVE); URINE SPECIFIC GRAVITY 1.028; UROBILINOGEN,URINE NEGATIVE mg/dL (<2.0)
[2020-04-18 05:51] LABS: ALBUMIN 4.3 g/dL (3.5-5.0); ALKALINE PHOSPHATASE 105 U/L (38-126); ANION GAP 8 (5-19); ASPARTATE AMINO TRANSFERASE 21 U/L (14-36); BILIRUBIN,DIRECT 0.2 mg/dL (0.0-0.4); BILIRUBIN,TOTAL 0.3 mg/dL (0.2-1.3); BLOOD UREA NITROGEN 10 mg/dL (7-20); CALCIUM 9.7 mg/dL (8.4-10.2); CARBON DIOXIDE 24 mmol/L (22-30); CHLORIDE 106 mmol/L (98-107); GLUCOSE 92 mg/dL (75-110); POTASSIUM 4.6 mmol/L (3.6-5.0); TOTAL PROTEIN 7.8 g/dL (6.3-8.2)
--- NOTE | 2020-04-18 08:56 | ER Document Report ---
ED General - General Chief Complaint: Nausea/Vomiting/Diarrhea Stated Complaint: POSSIBLE FOOD POISONING Time Seen by Provider: 04/18/20 07:56 TRAVEL OUTSIDE OF THE [place] IN LAST 30 DAYS: No - HPI Notes: Chief complaint: Nausea, vomiting, diarrhea and abdominal cramping History of present illness: Previously healthy 24-year-old female who normally takes no regular medications and has no known allergies now seen with a 24-hour history of intermittent nausea, vomiting, diarrhea and abdominal cramping. She states that she did eat some food that "did not taste just right" several hours prior to initial onset of her symptoms. Last normal menstrual period 2 weeks ago. - Related Data Allergies/Adverse Reactions: No Known Allergies Allergy (Verified 01/17/18 15:29) Past Medical History - General Information source: Patient - Social History Smoking Status: Never Smoker Frequency of alcohol use: Occasional Drug Abuse: None Family History: Reviewed & Not Pertinent - Medical History Medical History: Negative Renal/ Medical History: Denies: Hx Peritoneal Dialysis Past Surgical History: Reports: Hx Cardiac Surgery - Immunizations Immunizations up to date: Yes Hx Diphtheria, Pertussis, Tetanus Vaccination: Yes Review of Systems - Review of Systems Notes: Constitutional: Negative for fever. HENT: Negative for sore throat. Eyes: Negative for visual changes. Cardiovascular: Negative for chest pain. Respiratory: Negative for shortness of breath. Gastrointestinal: As per HPI. Genitourinary: Negative for dysuria. Musculoskeletal: Negative for back pain. Skin: Negative for rash. Neurological: Negative for headaches, weakness or numbness. 10 point ROS negative except as marked above and in HPI. Physical Exam - Vital signs Vitals: Temp Pulse Resp BP Pulse Ox 98.3 F 98 18 130/78 H 99 04/18/20 02:40 04/18/20 02:40 04/18/20 02:40 04/18/20 02:40 04/18/20 02:40 - Notes Notes: GENERAL: Well-developed well-nourished female approximately stated age appearing in no acute distress. SKIN: Good turgor no rashes. HEAD: Normocephalic atraumatic. EYES: PERRLA. EOMI. Conjunctivae and sclerae clear. EARS: CANALS AND TMS CLEAR. NOSE: CLEAR. MOUTH: Moist mucosa. Good dentition. No stridor or edema. No drooling. NECK: Supple. No masses or thyromegaly. No adenopathy. Carotids 2+ without bruits. No JVD. BACK: Symmetrical without tenderness. CHEST: Respirations unlabored. Breath sounds clear and symmetrical. HEART: Regular rhythm. No murmur gallop or rub. ABDOMEN: Soft nontender without masses, organomegaly or rebound. Bowel sounds hyperactive. No bruits. GENITALIA: Deferred. EXTREMITIES: No edema. No calf tenderness. Cap refill less than 1.5 seconds. Dorsalis pedis and posterior tibial pulses 3+ and symmetrical. NEUROLOGICAL: GCS 15. Alert and oriented x3. Normal gait. Fluent speech. Cranial nerves II through XII intact. Sensorimotor and cerebellar normal. Normal tone. PSYCHIATRIC: Appropriate affect. Course - Re-evaluation Re-evalutation: 04/18/20 08:55 History is suggestive of food poisoning. Patient had received Zofran prior to my evaluation and is feeling better and tolerating p.o. fluids here. She has a totally benign abdominal exam. White count is mildly elevated. Her chemistry profile is unremarkable. I think she is stable for outpatient follow-up with PMD. Findings, clinical impression and plan of treatment have been discussed with patient/family. Understanding of current findings and recommendations has been acknowledged by them and there is agreement regarding disposition and follow-up. - Vital Signs Vital signs: Temp Pulse Resp BP Pulse Ox 98.2 F 83 18 123/68 98 04/18/20 06:42 04/18/20 06:42 04/18/20 06:42 04/18/20 06:42 04/18/20 06:42 - Laboratory Results Result Diagrams: 04/18/20 04:52 04/18/20 04:52 Laboratory Results Interpreted: 04/18/20 04/18/20 04:52 04:52 WBC 14.6 H Absolute Neuts (auto) 11.9 H Seg Neutrophils % 81.3 H Urine Protein 30 H Critical Laboratory Results Reviewed: Yes Attending or Supervising Physician who Reviewed Labs: BABATUNDE MUNIZ - Radiology Results Critical Radiology Results Reviewed: No Critical Results Discharge - Discharge Clinical Impression: Acute gastroenteritis Condition: Stable Disposition: HOME, SELF-CARE Additional Instructions: Food Poisoning Your symptoms appear to be due to food poisoning. Food poisoning is due to bacterial poisons in food. It occurs when bacteria (usually staph) get into food, then have time to grow before the food is eaten. Symptoms usually begin about an hour after the contaminated food is eaten -- typically abdominal cramps, vomiting, and diarrhea. Refrigeration of food usually prevents food poisoning. Food poisoning usually resolves within a few hours without treatment. The bowel should be rested: nothing by mouth for about four hours, then frequent sips of clear liquids for another six to eight hours. Further treatment may be required for severe or prolonged vomiting, dehydration, or severe abdominal cramping. Call the doctor or come back if symptoms do not resolve within 24 hours, or if you worsen in any way -- for example you develop worsening pain, high fever, or blood in the stools. Return here as needed for new or worsening symptoms: Pain that is worsening or unimproved Uncontrolled vomiting High fever or shaking chills Overall worsening Follow-up with your doctor if your symptoms have not totally resolved within the next 24 hours. You have been provided a note for work and a prescription for medication to take as needed for nausea. Prescriptions: Ondansetron [Zofran Odt 4 mg Tablet] 1 - 2 tab PO Q4H PRN #15 tab.rapdis PRN Reason: For Nausea/Vomiting Forms: Return to Work
[2020-04-18 09:27] VITALS: BP 127/79
== END 2020-04-18 09:25 | disposition home or self-care (01) ==
LOC: ER 02:25
DX: K52.89 Other specified noninfective gastroenteritis and colitis (principal); R11.2 Nausea with vomiting, unspecified; R19.7 Diarrhea, unspecified; R10.9 Unspecified abdominal pain
CPT/HCPCS: 99283; 36415; 83690; 85025; 80053; 81001; S0119